=== PATIENT | female | born 1945 | race Caucasian/White ===

== ENCOUNTER 2021-01-04 22:18 | Observation (INO) | payer MEDICARE ==
[~2021-01-04] VITALS: Ht 167.6 cm; Wt 57.8 kg
[~2021-01-04 22:18] MED LIST: AMLO-186 PO; ASPI-630 PO; ATOR20TA58 PO; CARV3.1210 PO; CLOP75TA PO; DIGO250T14 PO; DIGO250T3 PO; DIPH25CA58 PO; INSU100V37 SQ; LOSA100T14 PO; LOSA25TA54 PO; METF10007 PO; OXYC1TAB22 PO; SIMV40TA18 PO
--- NOTE | 2021-01-04 22:36 | ED.ADGEN ---
Past Medical History Past Medical History: Diabetes-Type II, High Cholesterol, Hypertension, [place] Past Surgical History: Angioplasty, Hysterectomy, Other Additional Past Surgical Histo: cardiac stents x 3 Smoking Status: Former Smoker Alcohol Use: None General Adult EDM: Chief Complaint: CHEST PAIN HPI: HPI: Patient is a 75 year old female coming in for sternal chest pains are about 1 hour prior to arrival. Patient states that he feels like "an elephant stepping on me". Also states she has had some nausea but no vomiting. Patient says she feels like she is "forgetting to breathe" denies any shortness of breath or cough. Patient has a history significant for NSTEMI 11 months ago, at that time had a heart cath without any occlusions that showed Takotsubo cardiomyopathy, patient has a history of 3 prior stents. States she has been compliant with her aspirin and Plavix. Has had both of her Pfizer vaccines. Denies any history of tobacco, alcohol, or drug use. Patient states that she has been compliant on her medications. Review of Systems: Review of Systems: All other systems within normal limits except for as noted in the HPI Current Medications: Current Medications Medications (Trade) Dose Ordered Sig/Cale Start Time Stop Time Status Last Admin Dose Admin Aspirin (Aspirin Chewable) 324 mg 1X ONCE 01/04/21 23:00 01/04/21 23:01 DC Morphine Sulfate (Morphine Sulfate) 2 mg 1X ONCE 01/05/21 00:00 01/05/21 00:01 DC 01/04/21 23:53 2 MG Nitroglycerin (Nitrostat) 0.4 mg PRN Q5MIN PRN 01/04/21 22:30 01/05/21 00:18 DC 01/04/21 23:26 0.4 MG Ondansetron HCl (Zofran) 4 mg 1X ONCE 01/04/21 23:00 01/04/21 23:01 DC 01/04/21 22:46 4 MG Allergies: Allergies: Allergies Coded Allergies Type Severity Reaction Last Updated Verified Iodinated Contrast Media Allergy Severe 02/18/20 Yes Tetracyclines Allergy Severe nausea and vomiting 02/17/20 Yes Physical Exam: PE: Constitutional: Well developed, well nourished, no acute distress, non-toxic appearance. [] HENT: Normocephalic, atraumatic, bilateral external ears normal, nose normal. [] Eyes: PERRLA, conjunctiva normal, no discharge. [] Neck: No rigidity, supple, no stridor. [] Cardiovascular: Regular rate and rhythm, brisk cap refill [] Lungs & Thorax: Non labored symmetric respirations, no tachypnea or respiratory distress [] Abdomen: Soft, nondistended. Skin: Warm, dry, no erythema, no rash. [] Back: Unremarkable Extremities: No deformities, range of motion grossly intact, no lower extremity edema [] Neurologic: Alert and oriented X 3, no focal deficits noted. [] Psychologic: Affect normal, judgement normal, mood normal. [] Current Patient Data: Labs: Laboratory Tests Test 01/04/21 22:35 White Blood Count 11.9 x10^3/uL (4.0-11.0) H Red Blood Count 4.08 x10^6/uL (3.50-5.40) Hemoglobin 12.4 g/dL (12.0-15.5) Hematocrit 36.9 % (36.0-47.0) Mean Corpuscular Volume 90 fL (79-100) Mean Corpuscular Hemoglobin 30 pg (25-35) Mean Corpuscular Hemoglobin Concent 34 g/dL (31-37) Red Cell Distribution Width 12.6 % (11.5-14.5) Platelet Count 321 x10^3/uL (140-400) Neutrophils (%) (Auto) 39 % (31-73) Lymphocytes (%) (Auto) 44 % (24-48) Monocytes (%) (Auto) 10 % (0-9) H Eosinophils (%) (Auto) 6 % (0-3) H Basophils (%) (Auto) 1 % (0-3) Neutrophils # (Auto) 4.6 x10^3/uL (1.8-7.7) Lymphocytes # (Auto) 5.2 x10^3/uL (1.0-4.8) H Monocytes # (Auto) 1.2 x10^3/uL (0.0-1.1) H Eosinophils # (Auto) 0.7 x10^3/uL (0.0-0.7) Basophils # (Auto) 0.1 x10^3/uL (0.0-0.2) Prothrombin Time 13.5 SEC (11.7-14.0) Prothrombin Time INR 1.0 (0.8-1.1) Sodium Level 141 mmol/L (136-145) Potassium Level 4.5 mmol/L (3.5-5.1) Chloride Level 106 mmol/L (98-107) Carbon Dioxide Level 28 mmol/L (21-32) Anion Gap 7 (6-14) Blood Urea Nitrogen 26 mg/dL (7-20) H Creatinine 1.1 mg/dL (0.6-1.0) H Estimated GFR (Cockcroft-Gault) 48.3 BUN/Creatinine Ratio 24 (6-20) H Glucose Level 92 mg/dL (70-99) Calcium Level 9.8 mg/dL (8.5-10.1) Magnesium Level 1.9 mg/dL (1.8-2.4) Total Bilirubin 1.5 mg/dL (0.2-1.0) H Aspartate Amino Transferase (AST) 16 U/L (15-37) Alanine Aminotransferase (ALT) 17 U/L (14-59) Alkaline Phosphatase 77 U/L (46-116) Troponin I Quantitative 0.021 ng/mL (0.000-0.055) OY-Mls-P-Type Natriuretic Peptide 121 pg/mL (0-449) Total Protein 7.7 g/dL (6.4-8.2) Albumin 4.3 g/dL (3.4-5.0) Albumin/Globulin Ratio 1.3 (1.0-1.7) Laboratory Tests 01/04/21 22:35 Laboratory Tests 01/04/21 22:35 Vital Signs: Vital Signs Date Time Temp Pulse Resp B/P (MAP) Pulse Ox O2 Delivery O2 Flow Rate FiO2 01/04/21 23:53 15 97 Room Air 01/04/21 23:26 69 167/84 01/04/21 22:25 97.5 97.5 EKG: EKG: Sinus rhythm, heart rate 60 bpm, left axis deviation, no STEMI, nonspecific ST depressions. When compared to EKG dated 02-18-20 there are T wave inversions in V2 [] Heart Score: C/O Chest Pain: Yes HEART Score for Chest Pain: HEART Score for Chest Pain Response (Comments) Value History Highly Suspicious 2 ECG Nonspecific Repolarizatio 1 Age > 65 2 Risk Factors >3 Risk Factors or Hx CAD 2 Troponin < Normal Limit 0 Total 7 Risk Factors: Risk Factors: DM, Current or recent (<one month) smoker, HTN, HLP, family h istory of CAD, obesity. Risk Scores: Score 0 - 3: 2.5% MACE over next 6 weeks - Discharge Home Score 4 - 6: 20.3% MACE over next 6 weeks - Admit for Clinical Observation Score 7 - 10: 72.7% MACE over next 6 weeks - Early Invasive Strategies Radiology/Procedures: Radiology/Procedures: [facility] [address] [place] [address] IMAGING REPORT Signed PATIENT: VIJAY ARANA ACCOUNT: [id number] : 1945 LOCATION: ER AGE: 75 SEX: F EXAM STATUS: REG ER ORD. PHYSICIAN: JAYDE HINES MD REASON: chest pain PROCEDURE: CHEST PA & LATERAL Exam: Chest 2 views INDICATION: Chest pain TECHNIQUE: Frontal and lateral views the chest Comparisons: None FINDINGS: The cardiomediastinal silhouette and pulmonary vessels are within normal limits. The lung and pleural spaces are clear. IMPRESSION: No acute cardiopulmonary process. Electronically signed by: Rishi Feng MD (01/04/2021 11:04 PM) [facility] DICTATED and SIGNED BY: RISHI FENG MD DATE: 01/04/21 [id number] [] Course & Med Decision Making: Course & Med Decision Making Pertinent Labs and Imaging studies reviewed. (See chart for details) [] Patient admitted for chest pain observation due to significant history and combination with symptoms. Pains are relieved with morphine and nitroglycerin. Patient already taken aspirin prior to arrival. 0245: Repeat troponin increased from 0.02 to 0.7, patient started heparin. Patient status changed from observation on telemetry to CVC inpatient. Dragon Disclaimer: Dragon Disclaimer: This electronic medical record was generated, in whole or in part, using a voice recognition dictation system. Departure Departure Impression: Primary Impression: NSTEMI (non-ST elevated myocardial infarction) Disposition: ADMITTED INPATIENT Admitting Physician: LOGAN Condition: GUARDED Referrals: EDUARDO OROURKE MD (PCP) JAYDE HINES MD Jan 04, 2021 22:36
[2021-01-04] MEDS: NITROGLYCERIN SUBLINGUAL 0.4 MG BOTTLE OF 25. SL PRN ×3 (22:39→23:26)
[2021-01-04 22:44] LABS: BASO # 0.1 x10^3/uL (0.0-0.2); BASO % 1 % (0-3); EOS # 0.7 x10^3/uL (0.0-0.7); EOS % 6 % (0-3); HEMATOCRIT 36.9 % (36.0-47.0); HEMOGLOBIN 12.4 g/dL (12.0-15.5); LYMPH # 5.2 x10^3/uL (1.0-4.8); LYMPH % 44 % (24-48); MEAN CORPUSCULAR HEMOGLOBIN 30 pg (25-35); MEAN CORPUSCULAR HGB CONC 34 g/dL (31-37); MEAN CORPUSCULAR VOLUME 90 fL (79-100); MONO # 1.2 x10^3/uL (0.0-1.1); MONO % 10 % (0-9); NEUT # 4.6 x10^3/uL (1.8-7.7); NEUT % 39 % (31-73); PLATELET COUNT 321 x10^3/uL (140-400); RED BLOOD COUNT 4.08 x10^6/uL (3.50-5.40); RED CELL DISTRIBUTION WIDTH 12.6 % (11.5-14.5); WHITE BLOOD COUNT 11.9 x10^3/uL (4.0-11.0)
[2021-01-04 22:55] LABS: CALCIUM 9.8 mg/dL (8.5-10.1); CREATININE 1.1 mg/dL (0.6-1.0); GFR 48.3; POTASSIUM 4.5 mmol/L (3.5-5.1)
[2021-01-04 22:59] LABS: PROTHROMBIN TIME PATIENT 13.5 SEC (11.7-14.0)
[2021-01-04] MEDS ORDERED: MORPHINE SULFATE 2 MG/ML INJ. IV ONE (23:00)
[2021-01-04] MEDS ORDERED: ASPIRIN CHEWABLE 81 MG TABLET. PO ONE (23:00)
[2021-01-04] MEDS ORDERED: ONDANSETRON PF 4 MG/2 ML VIAL. IVP ONE (23:00)
[2021-01-04 23:01] LABS: ALBUMIN 4.3 g/dL (3.4-5.0); ALBUMIN/GLOBULIN RATIO 1.3 (1.0-1.7); MAGNESIUM 1.9 mg/dL (1.8-2.4); TOTAL BILIRUBIN 1.5 mg/dL (0.2-1.0); TOTAL PROTEIN 7.7 g/dL (6.4-8.2)
--- NOTE | 2021-01-04 23:07 | RAD ---
Exam: Chest 2 views INDICATION: Chest pain TECHNIQUE: Frontal and lateral views the chest Comparisons: None FINDINGS: The cardiomediastinal silhouette and pulmonary vessels are within normal limits. The lung and pleural spaces are clear. IMPRESSION: No acute cardiopulmonary process. Electronically signed by: Rishi Jasmine MD (01/04/2021 11:04 PM) [facility]ATE[facility]
[2021-01-05] VITALS (24 sets, daily range): BP systolic 101–177; BP diastolic 65–104
[2021-01-05] MEDS ORDERED: MORPHINE SULFATE 4 MG/ML INJ. IV ONE
[2021-01-05] MEDS ORDERED: NITROGLYCERIN SUBLINGUAL 0.4 MG BOTTLE OF 25. SL PRN ×2 (00:15→12:15)
[2021-01-05] MEDS ORDERED: ONDANSETRON PF 4 MG/2 ML VIAL. IVP PRN (00:15)
[2021-01-05] MEDS ORDERED: ACETAMINOPHEN 325 MG TABLET. PO PRN (00:15)
[2021-01-05] MEDS: MORPHINE SULFATE 4 MG/ML INJ. IVP PRN ×2 (01:00→07:59)
--- NOTE | 2021-01-05 01:14 | EKG ---
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
--- NOTE | 2021-01-05 01:15 | EKG ---
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
--- NOTE | 2021-01-05 01:16 | EKG ---
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
[2021-01-05 02:17] LABS: BILIRUBIN,URINE NEGATIVE (NEG); CLARITY,URINE CLEAR; COLOR,URINE YELLOW; NITRITE,URINE NEGATIVE (NEG); PROTEIN,URINE NEGATIVE (NEG-TRACE); UROBILINOGEN,URINE 0.2 mg/dL (0.2 mg/dL)
[2021-01-05 02:22] LABS: BACTERIA,URINE FEW /HPF (0-FEW); HYALINE CASTS, URINE FEW /HPF; RBC,URINE OCC /HPF (0-2)
[2021-01-05] MEDS ORDERED: HEPARIN 25,000UTS/250ML PREMIX 250 ML IV PRN (03:00)
[2021-01-05] MEDS ORDERED: HEPARIN for IV BOLUS 10,000 UNIT/10 ML VIAL. IV PRN (03:00)
[2021-01-05] MEDS ORDERED: ANTI-COAG MONITOR BY PHARMACY. MC PRN (03:00)
[2021-01-05] MEDS ORDERED: HYDROmorphone 2 MG/ML VIAL IVP ONE (03:30)
[2021-01-05] MEDS ORDERED: HEPARIN for IV BOLUS 10,000 UNIT/10 ML VIAL. IV ONE (03:30)
--- NOTE | 2021-01-05 04:22 | EKG ---
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
--- NOTE | 2021-01-05 05:36 | NUR ---
The patient, VIJAY ARANA, 75 y/o, F admitted by HAYDE SPRAGUE MD, was given written information regarding hospital policies, unit procedures and contact persons. Pt assessment and history completed and documented. Valuables were checked and documented. Callight in reach will cont to monitor pt status and safety. pmrn
--- NOTE | 2021-01-05 07:01 | NUR ---
CONSULT CALLED TO DR WARD, MESSAGE LEFT WITH ANSWERING SERVICE. PMRN
[2021-01-05] MEDS ORDERED: fentaNYL PF VIAL 100 MCG/2 ML VIAL IVP PRN (08:45)
--- NOTE | 2021-01-05 09:01 | PDOC1 ---
History and Physical Date of Admission Date of Admission DATE: 01/05/21 TIME: 09:01 Identification/Chief Complaint Chief Complaint CHEST PAIN History of Present Illness History of Present Illness Ms. Arana is a 74 old female who presented to ER with chest pain. RECENT left heart cath with no significant coronary stenosis with patent previously placed stent in the left circumflex. 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 Echocardiogram shows mildly decreased LV systolic function at 40-45%. BUT CATH suggested Takotsubo's cardiomyopathy with ejection fraction estimated at 25 to 30% NSTEMI 11 months ago, at that time had a heart cath without any occlusions that showed Takotsubo cardiomyopathy, patient has a history of 3 prior stents. States she has been compliant with her aspirin and Plavix. Has had both of her Pfizer vaccines. Denies any history of tobacco, alcohol, or drug use PLAN Entresto, Spironolactonine, Metoprolol LX and Jardiance. Monitor overnight and DC tomorrow. ADMITCardiac rehab referral Past Medical History Cardiovascular: CAD, HTN, Hyperlipidemia Heme/Onc: Anemia NOS Musculoskeletal: Osteoarthritis Renal/: UTI, Other Endocrine: Diabetes Past Surgical History Past Surgical History: Tonsillectomy, Hysterectomy, Other Family History Family History: Coronary Artery Disease, Hypertension Social History Smoke: No ALCOHOL: rare Drugs: None Current Medications Current Medications Current Medications Aspirin (Aspirin Chewable) 324 mg 1X ONCE PO ; Start 01/04/21 at 23:00; Stop 01/04/21 at 23:01; Status DC Nitroglycerin (Nitrostat) 0.4 mg PRN Q5MIN PRN SL CP RATING > 1/10 Last administered on 01/04/21at 23:26; Start 01/04/21 at 22:30; Stop 01/05/21 at 00:18; Status DC Morphine Sulfate (Morphine Sulfate) 2 mg 1X ONCE IV Last administered on 01/04/21at 22:45; Start 01/04/21 at 23:00; Stop 01/04/21 at 23:01; Status DC Ondansetron HCl (Zofran) 4 mg 1X ONCE IVP Last administered on 01/04/21at 22:46; Start 01/04/21 at 23:00; Stop 01/04/21 at 23:01; Status DC Morphine Sulfate (Morphine Sulfate) 2 mg 1X ONCE IV Last administered on 01/04/21at 23:53; Start 01/05/21 at 00:00; Stop 01/05/21 at 00:01; Status DC Ondansetron HCl (Zofran) 4 mg PRN Q8HRS PRN IVP NAUSEA/VOMITING 1ST CHOICE Last administered on 01/05/21at 08:05; Start 01/05/21 at 00:15; Stop 01/06/21 at 00:14 Morphine Sulfate (Morphine Sulfate) 4 mg PRN Q2HR PRN IVP SEVERE PAIN 7-10 Last administered on 01/05/21at 07:59; Start 01/05/21 at 00:15; Stop 01/06/21 at 00:14 Acetaminophen (Tylenol) 650 mg PRN Q4HRS PRN PO FEVER > 100.3'F Last administered on 01/05/21at 06:33; Start 01/05/21 at 00:15; Stop 01/06/21 at 00:14 Nitroglycerin (Nitrostat) 0.4 mg PRN Q5MIN PRN SL CHEST PAIN; Start 01/05/21 at 00:15; Stop 01/06/21 at 00:14 Hydromorphone HCl (Dilaudid) 1 mg 1X ONCE IVP Last administered on 01/05/21at 04:03; Start 01/05/21 at 03:30; Stop 01/05/21 at 03:31; Status DC Heparin Sodium (Porcine) (Heparin Sodium) 3,650 unit 1X ONCE IV Last administered on 01/05/21at 03:40; Start 01/05/21 at 03:30; Stop 01/05/21 at 03:31; Status DC Heparin Sodium/ Dextrose 250 ml @ 0 mls/hr CONT PRN IV PER PROTOCOL Last administered on 01/05/21at 03:44; Start 01/05/21 at 03:00 Heparin Sodium (Porcine) (Heparin Sodium) 1,500 unit PRN Q6HRS PRN IV FOR UFH LEVEL LESS THAN 0.2; Start 01/05/21 at 03:00 Info (Anti-Coagulation Monitoring By Pharmacy) 1 each PRN DAILY PRN MC PER PROTOCOL Last administered on 01/05/21at 04:59; Start 01/05/21 at 03:00 Fentanyl Citrate (Fentanyl 2ml Vial) 75 mcg PRN Q3HRS PRN IVP SEVERE PAIN 7-10; Start 01/05/21 at 08:45 Active Scripts Active Amlodipine Besylate 5 Mg Tablet 5 Mg PO DAILY Atorvastatin Calcium 20 Mg Tablet 20 Mg PO QHS Carvedilol (Carvedilol) 3.125 Mg Tablet 3.125 Mg PO BIDWMEALS Reported Losartan Potassium 100 Mg Tablet 100 Mg PO DAILY Tresiba (Insulin Degludec) 100 Unit/1 Ml Vial 30 Unit SQ HS Percocet 10-325 Mg Tablet (Oxycodone/Acetaminophen) 1 Each Tablet 1 Tab PO QIDPRN PRN MDD 4 Tablet(s) 30 Days Benadryl (Diphenhydramine Hcl) 25 Mg Capsule 25 Mg PO Q6HRS Metformin Hcl 1,000 Mg Tablet 1,000 Mg PO BIDWMEALS Aspirin 81 Mg Tab.chew 1 Tab PO DAILY Clopidogrel (Clopidogrel Bisulfate) 75 Mg Tablet 75 Mg PO DAILY Allergies Allergies: Coded Allergies: Iodinated Contrast Media (Verified Allergy, Severe, 02/18/20) Tetracyclines (Verified Allergy, Severe, nausea and vomiting, 02/17/20) ROS General: YES: Fatigue; No: Chills, Night Sweats, Malaise, Appetite, Other PSYCHOLOGICAL ROS: No: Anxiety, Behavioral Disorder, Concentration difficultie, Decreased libido, Depression, Disorientation, Hallucinations, Hostility, Irritablity, Memory difficulties, Mood Swings, Obsessive thoughts, Physical abuse, Sexual abuse, Sleep disturbances, Suicidal ideation, Other Eyes: Yes Decreased vision; No Blurry vision, No Double vision, No Dry eyes, No Excessive tearing, No Eye Pain, No Itchy Eyes, No Loss of vision, No Photophobia, No Scotomata, No Uses contacts, No Uses glasses, No Other HEENT: No: Heacaches, Visual Changes, Hearing change, Nasal congestion, Nasal discharge, Oral lesions, Sinus pain, Sore Throat, Epistaxis, Sneezing, Snoring, Tinnitus, Vertigo, Vocal changes, Other ALLERGY AND IMMUNOLOGY: YES: Hives; No: Insect Bite Sensitivity, Itchy/Watery Eyes, Nasal Congestion, Post Nasal Drip, Seasonal Allergies, Other Hematological and Lymphatic: No: Bleeding Problems, Blood Clots, Blood Transfusions, Brusing, Night Sweats, Pallor, Swollen Lymph Nodes, Other ENDOCRINE: No: Breast Changes, Galactorrhea, Hair Pattern Changes, Hot Flashes, Malaise/lethargy, Mood Swings, Palpitations, Polydipsia/polyuria, Skin Changes, Temperature Intolerance, Unexpected Weight Changes, Other Breast: No New/Changing Breast Lumps, No Nipple changes, No Nipple discharge, No Other Respiratory: No: Cough, Hemoptysis, Orthopnea, Pleuritic Pain, Shortness of breath, SOB with excertion, Sputum Changes, Stridor, Tachypnea, Wheezing, Other Cardiovascular: yes Chest Pain, yes Orthopnea; No Palpitations, No Paroxysmal Noc. Dyspnea, No Edema, No Lt Headedness, No Other Gastrointestinal: No Nausea, No Vomiting, No Abdominal Pain, No Diarrhea, No Constipation, No Melena, No Hematochezia, No Other Genitourinary: No Dysuria, No Frequency, No Incontinence, No Hematuria, No Retention, No Discharge, No Urgency, No Pain, No Flank Pain, No Other, No , No , No , No , No , No , No Musculoskeletal: Yes Joint Stiffness; No Gait Disturbance, No Joint Pain, No Joint Swelling, No Muscle Pain, No Muscular Weakness, No Pain In:, No Swelling In:, No Other Neurological: No Behavorial Changes, No Bowel/Bladder ControlChng, No Confusion, No Dizziness, No Gait Disturbance, No Headaches, No Impaired Coord/balance, No Memory Loss, No Numbness/Tingling, No Seizures, No Speech Problems, No Tremors, No Visual Changes, No Weakness, No Other Skin: Yes Dry Skin; No Eczema, No Hair Changes, No Lumps, No Mole Changes, No Mottling, No Nail Changes, No Pruritus, No Rash, No Skin Lesion Changes, No Other, No Acne Physical Exam General: Alert, Oriented X3, Cooperative, No acute distress HEENT: Atraumatic, PERRLA Lungs: Clear to auscultation, Normal air movement Heart: no thrills, no gallops, no jug vein distention Breasts: Not examined Abdomen: Normal bowel sounds, Soft Rectal Exam: not examined PELVIC: Examination not indicated Extremities: No cyanosis Neuro: Normal speech, Cranial nerves 3-12 NL Psych/Mental Status: Mental status NL, Mood NL Vitals Vitals Vital Signs Date Time Temp Pulse Resp B/P (MAP) Pulse Ox O2 Delivery O2 Flow Rate FiO2 8/17/21 07:59 Room Air 01/05/21 04:03 17 93 01/05/21 03:52 76 147/96 (113) 01/04/21 22:25 97.5 97.5 Labs Labs Laboratory Tests Test 01/04/21 22:35 01/05/21 02:05 01/05/21 02:14 01/05/21 05:30 White Blood Count 11.9 x10^3/uL (4.0-11.0) Red Blood Count 4.08 x10^6/uL (3.50-5.40) Hemoglobin 12.4 g/dL (12.0-15.5) Hematocrit 36.9 % (36.0-47.0) Mean Corpuscular Volume 90 fL (79-100) Mean Corpuscular Hemoglobin 30 pg (25-35) Mean Corpuscular Hemoglobin Concent 34 g/dL (31-37) Red Cell Distribution Width 12.6 % (11.5-14.5) Platelet Count 321 x10^3/uL (140-400) Neutrophils (%) (Auto) 39 % (31-73) Lymphocytes (%) (Auto) 44 % (24-48) Monocytes (%) (Auto) 10 % (0-9) Eosinophils (%) (Auto) 6 % (0-3) Basophils (%) (Auto) 1 % (0-3) Neutrophils # (Auto) 4.6 x10^3/uL (1.8-7.7) Lymphocytes # (Auto) 5.2 x10^3/uL (1.0-4.8) Monocytes # (Auto) 1.2 x10^3/uL (0.0-1.1) Eosinophils # (Auto) 0.7 x10^3/uL (0.0-0.7) Basophils # (Auto) 0.1 x10^3/uL (0.0-0.2) Prothrombin Time 13.5 SEC (11.7-14.0) Prothromb Time International Ratio 1.0 (0.8-1.1) Sodium Level 141 mmol/L (136-145) Potassium Level 4.5 mmol/L (3.5-5.1) Chloride Level 106 mmol/L (98-107) Carbon Dioxide Level 28 mmol/L (21-32) Anion Gap 7 (6-14) Blood Urea Nitrogen 26 mg/dL (7-20) Creatinine 1.1 mg/dL (0.6-1.0) Estimated GFR (Cockcroft-Gault) 48.3 BUN/Creatinine Ratio 24 (6-20) Glucose Level 92 mg/dL (70-99) Calcium Level 9.8 mg/dL (8.5-10.1) Magnesium Level 1.9 mg/dL (1.8-2.4) Total Bilirubin 1.5 mg/dL (0.2-1.0) Aspartate Amino Transf (AST/SGOT) 16 U/L (15-37) Alanine Aminotransferase (ALT/SGPT) 17 U/L (14-59) Alkaline Phosphatase 77 U/L (46-116) Troponin I Quantitative 0.021 ng/mL (0.000-0.055) 0.701 ng/mL (0.000-0.055) 1.318 ng/mL (0.000-0.055) DG-Unv-X-Type Natriuretic Peptide 121 pg/mL (0-449) Total Protein 7.7 g/dL (6.4-8.2) Albumin 4.3 g/dL (3.4-5.0) Albumin/Globulin Ratio 1.3 (1.0-1.7) Urine Collection Type Unknown Urine Color Yellow Urine Clarity Clear Urine pH 5.0 (<5.0-8.0) Urine Specific [place] 1.025 (1.000-1.030) Urine Protein Negative mg/dL (NEG-TRACE) Urine Glucose (UA) Negative mg/dL (NEG) Urine Ketones (Stick) Trace mg/dL (NEG) Urine Blood Negative (NEG) Urine Nitrite Negative (NEG) Urine Bilirubin Negative (NEG) Urine Urobilinogen Dipstick 0.2 mg/dL (0.2 mg/dL) Urine Leukocyte Esterase Negative (NEG) Urine RBC Occ /HPF (0-2) Urine WBC 1-4 /HPF (0-4) Urine Squamous Epithelial Cells Mod /LPF Urine Bacteria Few /HPF (0-FEW) Urine Hyaline Casts Few /HPF Urine Mucus Mod /LPF Test 01/05/21 07:52 Glucose (Fingerstick) 135 mg/dL (70-99) Laboratory Tests Test 01/04/21 22:35 01/05/21 02:05 01/05/21 02:14 01/05/21 05:30 White Blood Count 11.9 x10^3/uL (4.0-11.0) Red Blood Count 4.08 x10^6/uL (3.50-5.40) Hemoglobin 12.4 g/dL (12.0-15.5) Hematocrit 36.9 % (36.0-47.0) Mean Corpuscular Volume 90 fL (79-100) Mean Corpuscular Hemoglobin 30 pg (25-35) Mean Corpuscular Hemoglobin Concent 34 g/dL (31-37) Red Cell Distribution Width 12.6 % (11.5-14.5) Platelet Count 321 x10^3/uL (140-400) Neutrophils (%) (Auto) 39 % (31-73) Lymphocytes (%) (Auto) 44 % (24-48) Monocytes (%) (Auto) 10 % (0-9) Eosinophils (%) (Auto) 6 % (0-3) Basophils (%) (Auto) 1 % (0-3) Neutrophils # (Auto) 4.6 x10^3/uL (1.8-7.7) Lymphocytes # (Auto) 5.2 x10^3/uL (1.0-4.8) Monocytes # (Auto) 1.2 x10^3/uL (0.0-1.1) Eosinophils # (Auto) 0.7 x10^3/uL (0.0-0.7) Basophils # (Auto) 0.1 x10^3/uL (0.0-0.2) Prothrombin Time 13.5 SEC (11.7-14.0) Prothromb Time International Ratio 1.0 (0.8-1.1) Sodium Level 141 mmol/L (136-145) Potassium Level 4.5 mmol/L (3.5-5.1) Chloride Level 106 mmol/L (98-107) Carbon Dioxide Level 28 mmol/L (21-32) Anion Gap 7 (6-14) Blood Urea Nitrogen 26 mg/dL (7-20) Creatinine 1.1 mg/dL (0.6-1.0) Estimated GFR (Cockcroft-Gault) 48.3 BUN/Creatinine Ratio 24 (6-20) Glucose Level 92 mg/dL (70-99) Calcium Level 9.8 mg/dL (8.5-10.1) Magnesium Level 1.9 mg/dL (1.8-2.4) Total Bilirubin 1.5 mg/dL (0.2-1.0) Aspartate Amino Transf (AST/SGOT) 16 U/L (15-37) Alanine Aminotransferase (ALT/SGPT) 17 U/L (14-59) Alkaline Phosphatase 77 U/L (46-116) Troponin I Quantitative 0.021 ng/mL (0.000-0.055) 0.701 ng/mL (0.000-0.055) 1.318 ng/mL (0.000-0.055) LM-[id number]-[id number]-Type Natriuretic Peptide 121 pg/mL (0-449) Total Protein 7.7 g/dL (6.4-8.2) Albumin 4.3 g/dL (3.4-5.0) Albumin/Globulin Ratio 1.3 (1.0-1.7) Urine Collection Type Unknown Urine Color Yellow Urine Clarity Clear Urine pH 5.0 (<5.0-8.0) Urine Specific [place] 1.025 (1.000-1.030) Urine Protein Negative mg/dL (NEG-TRACE) Urine Glucose (UA) Negative mg/dL (NEG) Urine Ketones (Stick) Trace mg/dL (NEG) Urine Blood Negative (NEG) Urine Nitrite Negative (NEG) Urine Bilirubin Negative (NEG) Urine Urobilinogen Dipstick 0.2 mg/dL (0.2 mg/dL) Urine Leukocyte Esterase Negative (NEG) Urine RBC Occ /HPF (0-2) Urine WBC 1-4 /HPF (0-4) Urine Squamous Epithelial Cells Mod /LPF Urine Bacteria Few /HPF (0-FEW) Urine Hyaline Casts Few /HPF Urine Mucus Mod /LPF Test 01/05/21 07:52 Glucose (Fingerstick) 135 mg/dL (70-99) Images Images think and talk about your own wishes for healthcare in case youre ever not able to tell your loved ones or healthcare team what your wishes are. If you became really sick tomorrow, would your loved ones or healthcare team know what your wishes were? Here are some examples of different sets of goals and health care directives for your conversations: My wish is to use all medical therapies including resuscitation (such as CPR) and artificial life-sustaining treatments (such as machines and medicine) in an intensive care unit, to keep me alive if at all possible. My wish is to live as long as possible, but I dont want attempts to bring me back to life if my heart and breathing stop. I would like full medical care but without using resuscitation or artificial life-sustaining intensive treatments, if these are unlikely to make me live longer or restore me to a certain quality of life. I will accept treatments that try to fix medical problems, but if Im not getting better or going to have a certain quality of life, I would want to switch to focusing only on my comfort and letting my happen naturally. My wish is for healthcare to focus on my comfort and lessen suffering. I would like medical care that focuses only on my quality of life and that allows me to naturally. Consider: What does a good quality of life mean for me? For many people, it is the ability to live independently and tell their own story. I may define it differently. Under what circumstances would I not want to be kept alive by medical treatments, resuscitation, or intensive care? What kind of changes to my health or life might make me change my mind? If I clearly am facing the last chapter of my life, how do I want the story to end? Who do I want to speak for me if I cant speak for myself? Do they understand my preferences? Are they willing to assume the role of my Durable Power of Burlap Roll Coverer? Can I change my Goals of Care Designation? Yes, your Goals of Care Designation can be changed at any time. It should be reviewed if: your health condition changes your circumstances change (such as new understanding) you are transferred or admitted to another healthcare setting dpoa review, to pt portal 18 min and question review APPROVED REPORT Technologist: RT Marian(R) Nurse: Columba Jones R.N. Procedure(s) performed: Left heart catheterization, selective coronary angiography and left ventriculography via right transradial approach Sedation Time: 42 Minutes Dose: 31.56 Gycm2 Contrast: 90 mL Visipaque Fluoro Time: 3.8 minutes INDICATION The indication(s) include : non-STEMI . CSHA Clinical Frailty Scale CSHA Clinical Frailty Scale: Mildly Frail Heart Failure Heart Failure: No PROCEDURE NARRATIVE After explaining the risks, benefits and alternative options, informed consent was obtained from patient. Patient was brought to the cardiac Veneer Lathe Operator and right wrist was prepped and draped in the usual fashion after confirming a p ositive modified Jacky's test. Arterial access was obtained in the right radial artery and a 6 [place] sheath was inserted. 6 [place] JR4 and 6 [place] JL 3.5 catheters were used to perform selective angiography of the right and left coronary arteries. 6 [place] pigtail catheter was used to perform left ventriculography. Patient tolerated the procedure well. Hemostasis was achieve d using TR band. There were no immediate complications. The following findings were noted. FINDINGS 1. Hemodynamics: Left ventricular end-diastolic pressure of 20 mmHg. No pullback gradient across the aortic valve. 2. Left ventriculography: Hypokinetic mid to distal myocardial segments, patent consistent with Takotsubu's cardiomyopathy. The left ventricular ejection fraction was estimated at 25 to 30%. No significant mitral regurgitation seen. 3. Coronary angiography: a. The left main coronary artery arose from the left sinus of Valsalva, gave rise to the left anterior descending and left circumflex arteries and did not sh ow any significant stenosis. b. The left anterior descending artery showed calcified 30% stenosis in the proximal to midsegment. c. The left circumflex artery showed a patent stent in the midsegment extending into the obtuse marginal branch. d. The right coronary artery was a large and dominant vessel arising from the right sinus of Valsalva that did not show any significant stenosis. Conclusion 1. No significant coronary stenosis with patent previously placed stent in the left circumflex artery extending to the obtuse marginal branch. 2. Takotsubo's cardiomyopathy with ejection fraction estimated at 25 to 30% Recommendations Optimization of medical therapy including beta-blockers and repeat 2D echo in 3 months. Signed by : Blayne Burleson, Electronically Approved : 02/19/2020 10:29:00Signed PATIENT: VIJAY ARANA ACCOUNT: [id number] : 1945 LOCATION: ER AGE: 75 SEX: F EXAM STATUS: REG ER ORD. PHYSICIAN: JAYDE HINES MD REASON: chest pain PROCEDURE: CHEST PA & LATERAL Exam: Chest 2 views INDICATION: Chest pain TECHNIQUE: Frontal and lateral views the chest Comparisons: None FINDINGS: The cardiomediastinal silhouette and pulmonary vessels are within normal limits. The lung and pleural spaces are clear. IMPRESSION: No acute cardiopulmonary process. Electronically signed by: Rishi Feng MD (01/04/2021 11:04 PM) [facility] DICTATED and SIGNED BY: RISHI FENG MD DATE: 01/04/21 [id number] VTE Prophylaxis Ordered VTE Prophylaxis Devices: Yes VTE Pharmacological Prophylaxi: Yes Assessment/Plan Assessment/Plan impression Angina Elevated troponin i c/w demand ischemia CAD with hx stent// placed stent in the left circumflex cath shows patent anatomy ON pLAVIX AND ASA Takotsubo's cardiomyopathy with ejection fraction estimated at 25 to 30% Hypertension Hyperlipidemia PLAN ADMIT Consult cardiology home meds DVT PROPHYLAXIS TELE BED REPEAT CARDIAC CATH TODAY Entresto, /Spironolactonine, Metoprolol LX and Jardiance. Cardiac rehab referral Justifications for Admission Other Justification KANWAL LEMOS MD Jan 05, 2021 09:01
[2021-01-05] MEDS ORDERED: oxyCODONE/APAP 10/325 1 TAB TABLET PO PRN (09:15)
[2021-01-05] MEDS ORDERED: diphenhydrAMINE 50 MG/ML VIAL IVP ONE (09:30)
[2021-01-05] MEDS ORDERED: methylPREDNISolone SOD SUCC PF 125 MG/2 ML VIAL. IV ONE (09:30)
[2021-01-05] MEDS ORDERED: IV NORMAL SALINE 1000ML BAG 1,000 ML IV ONE (09:30)
[2021-01-05] MEDS ORDERED: FAMOTIDINE 20 MG/2 ML VIAL IVP ONE (09:30)
[2021-01-05] MEDS ORDERED: NITROGLYCERIN PREMIX 250 ML IV ONE (09:30)
--- NOTE | 2021-01-05 09:34 | PDOC2 ---
MOHIT STEPHENS SSRS REPORT DEVELOPER 01/05/21 0934: CARDIAC CONSULT DATE OF CONSULT Date of Consult DATE: 01/05/21 TIME: 09:26 REASON FOR CONSULT Reason for Consult: Chest pain REFERRING PHYSICIAN Referring Physician: Darron SOURCE Source: Chart review, Patient HISTORY OF PRESENT ILLNESS HISTORY OF PRESENT ILLNESS This is a pleasant 75 yo female admitted for complains of chest pain. Reports it started last night pressure like radiating from midchest to right and radiating to right shoulder. Reports of nausea and some SOA. Denies any orthopnea, PND. No fever or chills nor palpitations. Reports of no falls or any recent injury. she is significant for CAD with stent and tokotsubo with last [facility] 01/2020. She presents with elevated troponin and has DM which she uses insulin. Verbalized that she has been compliant with her cardiac meds but failed to follow up in our office. She still having chest pain but slightly better than before. She has not been checking her BP as her machine is broken. She had her second shot of Pfizer in August. PAST MEDICAL HISTORY Past Medical History Cardiovascular: CAD, HTN, Hyperlipidemia, CHF, taklotsubo Heme/Onc: Anemia NOS Musculoskeletal: Osteoarthritis Renal/: UTI, Other (nephrolithiasis) Endocrine: Diabetes (2) PAST SURGICAL HISTORY Past Surgical History Tonsillectomy, Hysterectomy, Other (PCI, low back surgery) FAMILY HISTORY Family History: Coronary Artery Disease SOCIAL HISTORY Smoke: No ALCOHOL: rare Drugs: None Lives: with Family CURRENT MEDICATIONS CURRENT MEDICATIONS Current Medications Medications (Trade) Dose Ordered Sig/Cale Route PRN Reason Start Time Stop Time Status Last Admin Dose Admin Nitroglycerin (Nitrostat) 0.4 mg PRN Q5MIN PRN SL CP RATING > 1/10 01/04/21 22:30 01/05/21 00:18 DC 01/04/21 23:26 Morphine Sulfate (Morphine Sulfate) 2 mg 1X ONCE IV 01/04/21 23:00 01/04/21 23:01 DC 01/04/21 22:45 Ondansetron HCl (Zofran) 4 mg 1X ONCE IVP 01/04/21 23:00 01/04/21 23:01 DC 01/04/21 22:46 Morphine Sulfate (Morphine Sulfate) 2 mg 1X ONCE IV 01/05/21 00:00 01/05/21 00:01 DC 01/04/21 23:53 Ondansetron HCl (Zofran) 4 mg PRN Q8HRS PRN IVP NAUSEA/VOMITING 1ST CHOICE 01/05/21 00:15 01/06/21 00:14 01/05/21 08:05 Morphine Sulfate (Morphine Sulfate) 4 mg PRN Q2HR PRN IVP SEVERE PAIN 7-10 01/05/21 00:15 01/06/21 00:14 01/05/21 07:59 Acetaminophen (Tylenol) 650 mg PRN Q4HRS PRN PO FEVER > 100.3'F 01/05/21 00:15 01/06/21 00:14 01/05/21 06:33 Hydromorphone HCl (Dilaudid) 1 mg 1X ONCE IVP 01/05/21 03:30 01/05/21 03:31 DC 01/05/21 04:03 Heparin Sodium (Porcine) (Heparin Sodium) 3,650 unit 1X ONCE IV 01/05/21 03:30 01/05/21 03:31 DC 01/05/21 03:40 Heparin Sodium/ Dextrose 250 ml @ 0 mls/hr CONT PRN IV PER PROTOCOL 01/05/21 03:00 01/05/21 03:44 Info (Anti-Coagulation Monitoring By Pharmacy) 1 each PRN DAILY PRN MC PER PROTOCOL 01/05/21 03:00 01/05/21 04:59 ALLERGIES ALLERGIES: Coded Allergies: Iodinated Contrast Media (Verified Allergy, Severe, 02/18/20) Tetracyclines (Verified Allergy, Severe, nausea and vomiting, 02/17/20) ROS Review of System 14 point ROS evaluated with pertinent positives noted per HPI PHYSICAL EXAM General: Alert, Oriented X3, Cooperative, No acute distress HEENT: Atraumatic, Mucous membr. moist/pink Lungs: Clear to auscultation, Normal air movement Heart: Regular rate (SR/ST), Normal S1, Normal S2, No murmurs Abdomen: Soft, No tenderness Extremities: No cyanosis, Other (1+ bilateral LE pitting edema) Skin: No breakdown, No significant lesion Neuro: Normal speech, Sensation intact Psych/Mental Status: Mental status NL, Mood NL MUSCULOSKELETAL: Osteoarthritic changes both hands VITALS/I&O VITALS/I&O: Vital Signs Date Time Temp Pulse Resp B/P (MAP) Pulse Ox O2 Delivery O2 Flow Rate FiO2 01/05/21 07:59 Room Air 01/05/21 04:03 17 93 01/05/21 03:52 76 147/96 (113) 01/04/21 22:25 97.5 97.5 I & O 01/04/21 01/04/21 01/05/21 15:00 23:00 07:00 Output Total 250 ml Balance -250 ml LABS Lab: Laboratory Tests Test 01/04/21 22:35 01/05/21 02:05 01/05/21 02:14 01/05/21 05:30 White Blood Count 11.9 x10^3/uL (4.0-11.0) H Red Blood Count 4.08 x10^6/uL (3.50-5.40) Hemoglobin 12.4 g/dL (12.0-15.5) Hematocrit 36.9 % (36.0-47.0) Mean Corpuscular Volume 90 fL (79-100) Mean Corpuscular Hemoglobin 30 pg (25-35) Mean Corpuscular Hemoglobin Concent 34 g/dL (31-37) Red Cell Distribution Width 12.6 % (11.5-14.5) Platelet Count 321 x10^3/uL (140-400) Neutrophils (%) (Auto) 39 % (31-73) Lymphocytes (%) (Auto) 44 % (24-48) Monocytes (%) (Auto) 10 % (0-9) H Eosinophils (%) (Auto) 6 % (0-3) H Basophils (%) (Auto) 1 % (0-3) Neutrophils # (Auto) 4.6 x10^3/uL (1.8-7.7) Lymphocytes # (Auto) 5.2 x10^3/uL (1.0-4.8) H Monocytes # (Auto) 1.2 x10^3/uL (0.0-1.1) H Eosinophils # (Auto) 0.7 x10^3/uL (0.0-0.7) Basophils # (Auto) 0.1 x10^3/uL (0.0-0.2) Prothrombin Time 13.5 SEC (11.7-14.0) Prothrombin Time INR 1.0 (0.8-1.1) Sodium Level 141 mmol/L (136-145) Potassium Level 4.5 mmol/L (3.5-5.1) Chloride Level 106 mmol/L (98-107) Carbon Dioxide Level 28 mmol/L (21-32) Anion Gap 7 (6-14) Blood Urea Nitrogen 26 mg/dL (7-20) H Creatinine 1.1 mg/dL (0.6-1.0) H Estimated GFR (Cockcroft-Gault) 48.3 BUN/Creatinine Ratio 24 (6-20) H Glucose Level 92 mg/dL (70-99) Calcium Level 9.8 mg/dL (8.5-10.1) Magnesium Level 1.9 mg/dL (1.8-2.4) Total Bilirubin 1.5 mg/dL (0.2-1.0) H Aspartate Amino Transferase (AST) 16 U/L (15-37) Alanine Aminotransferase (ALT) 17 U/L (14-59) Alkaline Phosphatase 77 U/L (46-116) Troponin I Quantitative 0.021 ng/mL (0.000-0.055) 0.701 ng/mL (0.000-0.055) 1.318 ng/mL (0.000-0.055) KT-Ayv-E-Type Natriuretic Peptide 121 pg/mL (0-449) Total Protein 7.7 g/dL (6.4-8.2) Albumin 4.3 g/dL (3.4-5.0) Albumin/Globulin Ratio 1.3 (1.0-1.7) Urine Collection Type Unknown Urine Color Yellow Urine Clarity Clear Urine pH 5.0 (<5.0-8.0) Urine Specific Kermit 1.025 (1.000-1.030) Urine Protein Negative mg/dL (NEG-TRACE) Urine Glucose (UA) Negative mg/dL (NEG) Urine Ketones (Stick) Trace mg/dL (NEG) Urine Blood Negative (NEG) Urine Nitrite Negative (NEG) Urine Bilirubin Negative (NEG) Urine Urobilinogen Dipstick 0.2 mg/dL (0.2 mg/dL) Urine Leukocyte Esterase Negative (NEG) Urine RBC Occ /HPF (0-2) Urine WBC 1-4 /HPF (0-4) Urine Squamous Epithelial Cells Mod /LPF Urine Bacteria Few /HPF (0-FEW) Urine Hyaline Casts Few /HPF Urine Mucus Mod /LPF Test 01/05/21 07:52 Glucose (Fingerstick) 135 mg/dL (70-99) H Laboratory Tests 01/04/21 22:35 Laboratory Tests 01/04/21 22:35 ASSESSMENT/PLAN ASSESSMENT/PLAN 1. NSTEMI: ACS features 2. HTN: mildly elevated 3. HLP 4. DM2 5. Hx of Takotsubo CM Recommendations 1. LHC, risks and benefits discussed and agreeable to proceed 2. Iodine prep for allergy 3. Start IVF and NTG drip. ASA 4. TTE, FLP 5. Secondary prevention measures ANY WARD MD 01/05/21 1210: CARDIAC CONSULT ASSESSMENT/PLAN ASSESSMENT/PLAN Pt. seen and examined. Agree with above [employer] note. Cath revealed patent LCx stent and no new changes. 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 Monitor overnight and DC tomorrow. Cardiac rehab referral Thanks. MOHIT STEPHENS SSRS REPORT DEVELOPER Jan 05, 2021 09:34 ANY WARD MD Jan 05, 2021 12:10
[2021-01-05] MEDS ORDERED: IODIXANOL 320 MG/ML 100 ML VIAL. ONE (09:56)
[2021-01-05] MEDS ORDERED: LIDOCAINE 1% PF 2 ML VIAL. ONE (09:56)
[2021-01-05] MEDS ORDERED: HEPARIN for ARTERIAL LINE 1,500 ML ONE (09:56)
[2021-01-05] MEDS ORDERED: ASPIRIN CHEWABLE 81 MG TABLET. PO SCH (10:00)
[2021-01-05] MEDS ORDERED: LOSARTAN POTASSIUM 50 MG TABLET. PO SCH (10:00)
[2021-01-05] MEDS: CLOPIDOGREL BISULFATE 75 MG TABLET PO SCH (10:26)
[2021-01-05] MEDS: CARVEDILOL 3.125 MG TABLET. PO SCH ×2 (10:27→17:18)
[2021-01-05] MEDS ORDERED: fentaNYL PF VIAL 100 MCG/2 ML VIAL ONE (10:56)
[2021-01-05] MEDS ORDERED: HEPARIN for IV BOLUS 10,000 UNIT/10 ML VIAL. ONE (10:57)
[2021-01-05] MEDS ORDERED: VERAPAMIL 5 MG/2 ML VIAL. ONE (10:57)
[2021-01-05] MEDS ORDERED: NITROGLYCERIN 200 MCG/2 ML SYRINGE FOR CATH/VASC LAB. ONE (10:57)
[2021-01-05] MEDS ORDERED: MIDAZOLAM HCL/PF 2 MG/2 ML VIAL. ONE (10:57)
[2021-01-05] MEDS ORDERED: NITROGLYCERIN 200 MCG/2 ML SYRINGE FOR CATH/VASC LAB. IART ONE (11:30)
[2021-01-05] MEDS ORDERED: VERAPAMIL 5 MG/2 ML VIAL. IART ONE (11:30)
[2021-01-05] MEDS ORDERED: HEPARIN for IV BOLUS 10,000 UNIT/10 ML VIAL. IART ONE (11:30)
[2021-01-05] MEDS ORDERED: MIDAZOLAM HCL/PF 2 MG/2 ML VIAL. IV ONE (11:30)
[2021-01-05] MEDS ORDERED: IODIXANOL 320 MG/ML 100 ML VIAL. IART ONE (11:30)
[2021-01-05] MEDS ORDERED: LIDOCAINE 1% PF 2 ML VIAL. INJ ONE (11:30)
[2021-01-05] MEDS ORDERED: fentaNYL PF VIAL 100 MCG/2 ML VIAL IV ONE (11:30)
[2021-01-05] MEDS: diphenhydrAMINE HCL 25 MG CAPSULE PO SCH ×3 (12:00→23:39)
--- NOTE | 2021-01-05 12:07 | PDOC ---
MODERATE SEDATION ASSESSMENT RISKS/ALTERNATIVES Risks/Alternatives Risks and alternatives of this type of sedation and procedure discussed with: RISK/ALTERNATIVES: Patient H & P ON CHART H & P H & P on chart and reviewed for co-morbid conditions and appropriate labs. H&P ON CHART: Yes STATUS PREG STATUS ASSESSED: N/A MEDS/ALLERGIES REVIEWED Meds/Allergies Reviewed Medications and Allergies including time and route of recently administered narcotics and sedatives. MEDS/ALLERGIES REVIEWED: Yes ASA RATING ASA RATING: II AIRWAY ASSESSMENT Airway Assessment Airway patency, oral function limitations, presence of caps, crowns, dentures, partials, and ability to extend neck assessed. AIRWAY ASSESSMENT: Yes MALLAMPATI SCORE MALLAMPATI SCORE: II PRE-SEDATION ASSESSMENT PRE-SEDATION ASSESSMENT: Yes ANY WARD MD Jan 05, 2021 12:07
[2021-01-05] MEDS ORDERED: 0.9 % SODIUM CHLORIDE 10 ML DISP.SYRIN. IV PRN (12:15)
--- NOTE | 2021-01-05 12:17 | CARD ---
MR#: [id number] Date of Study: 01/05/2021 Ordering Physician: MOHIT STEPHENS, Referring Physician: MOHIT STEPHENS, Tech: RT Gopal(R) APPROVED REPORT Technologist: Beatriz Garza RT(R) Nurse: Kayleigh Campos RN Procedure(s) performed: MODERATE SEDATION TIME: 25 MINUTES FLUORO TIME: 2.8 MIN DOSE: 25.9 GYCM2 CONTRAST: 53CC VISI [facility], coronary angiography HISTORY The patient is a 75 year-old female with a history of : coronary artery disease. INDICATION The indication(s) include : non-STEMI . CS Clinical Frailty Scale [facility] Clinical Frailty Scale: Managing Well Heart Failure Heart Failure: Yes If Yes, Newly Diagnosed: No If Yes, HF Type: Diastolic Systolic If Yes, NYHA Class: Class II CASE TECHNIQUE IV conscious sedation was used throughout procedure with appropriate monitoring and was performed in the presence of a registered nurse who was an independent trained observer other than the physician p erforming the procedure. During this case, Fluoroscopy and low osmolar contrast were used for imaging . Specimen(s) Removed: N/A Estimated Blood loss: 15 cc's. PROCEDURE NARRATIVE Informed consent: Written informed consent was obtained from the patient after adequate discussion of the risks and hortencia efits of the procedure. Procedure details: ACCESS: The right wrist was prepped and draped in usual sterile fashion. Under 1% lidocaine local anesthesia a 6 Icelandic Terumo sheath was placed in the right radial artery via the Seldinger technique. DIAGNOSTIC ANGIOGRAPHY: Right and left coronary arteries were engaged with a 6 Icelandic TIG catheter. Diagnostic angiography i n multiple views were obtained. Next, a 5 Icelandic pigtail catheter was placed in the left ventricle a nd a LVEDP was measured. A pullback was performed after left ventriculography. All catheters were e xchanged over J-tip guidewire. FINDINGS: ======= Aorta: 110/80 LVEDP: 24 mmHg Left ventriculogram: EF 35%, distal half of the LV is severely hypokinetic, consistent with stress in duced CMP. Coronary angiography: LM: Large caliber vessel with normal angiographic appearance LAD: Moderate caliber vessel with a proximal 50% stenosis. D1: Small caliber vessel with normal angiographic appearance LCX: Small caliber vessel with proximal diffuse 50% in stent restenosis and mild diffuse luminal irre gularities distally. RCA: Large caliber dominant vessel with mild luminal irregularities of up to 30% RPDA: Moderate caliber vessel with mild luminal irregularities. CLOSURE: At case completion the right radial sheath was removed and a Terumo radial band was applied with 11 m L of air. Hemostasis was achieved. COMPLICATIONS: No acute complications noted Conclusion 1. Acute on chronic systolic and diastolic HF. LVEDP 24 mm Hg. 2. Severe LV dysfunction. EF 30-35% 3. Two vessel coronary disease with patent stent in the LCx. 4. 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 Recommendations Cardiac Rehabilitation Referral Aggressive Medical Therapy Signed by : Piotr Zuleta, Electronically Approved : 01/05/2021 12:17:25
--- NOTE | 2021-01-05 13:05 | NUR ---
AFTER 2CC OF AIR REMOVED FROM RIGHT RADIAL SITE, BLEEDING NOTED AND 3CC OF AIR REINSERTED. WILL CONTINUE TO MONITOR.
[2021-01-05 13:50] LABS: CHOLESTEROL/HDL RATIO 2.6
[2021-01-05] MEDS ORDERED: metFORMIN 500 MG TABLET PO SCH (17:00)
--- NOTE | 2021-01-05 17:07 | CARD ---
MR#: [id number] Date of Study: 01/05/2021 Ordering Physician: MOHIT STEPHENS, Referring Physician: MOHIT STEPHENS, Tech: Roopa Aumiadrienne, [facility] APPROVED REPORT EXAM: Two-dimensional and M-mode echocardiogram with Doppler and color Doppler. Other Information Quality : AverageHR: 72bpm INDICATION Status/Post CA RISK FACTORS Hypertension Hyperlipidemia Diabetes 2D DIMENSIONS Left Atrium(2D)2.1 (1.6-4.0cm)IVSd1.0 (0.7-1.1cm) Aortic Root(2D)3.0 (2.0-3.7cm)LVDd4.9 (3.9-5.9cm) LVOT Diameter2.1 (1.8-2.4cm)PWd0.8 (0.7-1.1cm) LVDs3.3 (2.5-4.0cm)FS (%) 32.8 % SV69.9 ml Aortic Valve AoV Peak Sam.109.1cm/sAoV VTI22.5cm AO Peak GR.4.8mmHgLVOT VTI 14.62cm AO Mean GR.3mmHg Mitral Valve MV E Nizfzwvq23.2cm/sMV E Peak Gr.5mmHg MV DECEL [id number] A Kmkwohpb82.7cm/s MV E Mean Gr.2mmHgE/A Ratio0.6 TDI Lateral E' P. V4.44cm/sMedial E' P. V4.38cm/s E/Lateral E'12.2E/Medial E'12.4 Tricuspid Valve TR P. [id number]/sRAP [id number] TR Peak Gr.[id number] LEFT VENTRICLE The Left Ventricle is mildly dilated. There is normal left ventricular wall thickness. The systolic f unction is moderately impaired. The Ejection Fraction is estimated at 30%. There is global hypokinesi s of the left ventricle. The mid to distal septal wall is akinetic through the apex and through the d istal lateral wall. Transmitral Doppler flow pattern is Grade I-abnormal relaxation pattern. RIGHT VENTRICLE The right ventricle is normal size. There is normal right ventricular wall thickness. The right ventr icular systolic function is normal. ATRIA The left atrium size is normal. The right atrium size is normal. The interatrial septum is intact wit h no evidence for an atrial septal defect or patent foramen ovale as noted on 2-D or Doppler imaging. AORTIC VALVE The aortic valve is not well visualized. Doppler and Color Flow revealed no significant aortic regurg itation. There is no significant aortic valvular stenosis. Calculated aortic valve area is 2.14 cm2 w ith maximum pressure gradient of 6 mmHg and mean pressure gradient of 3 mmHg. MITRAL VALVE The mitral valve is normal in structure and function. There is no evidence of mitral valve prolapse. There is no mitral valve stenosis. Doppler and Color-flow revealed trace mitral regurgitation. TRICUSPID VALVE The tricuspid valve is normal in structure and function. Doppler and Color Flow revealed mild to mode rate tricuspid regurgitation with an estimated PAP of 37 mmHg. There is no tricuspid valve stenosis. PULMONIC VALVE The pulmonic valve is not well visualized. Doppler and Color Flow revealed no pulmonic valvular regur gitation. GREAT VESSELS The aortic root is normal in size. The IVC is normal in size and collapses >50% with inspiration. PERICARDIAL EFFUSION There is no evidence of significant pericardial effusion. Critical Notification Critical Value: No <Conclusion> The Left Ventricle is mildly dilated. The systolic function is moderately impaired. The Ejection Fraction is estimated at 30%. There is global hypokinesis of the left ventricle. The mid to distal septal wall is akinetic through the apex and through the distal lateral wall. Doppler and Color Flow revealed no significant aortic regurgitation. There is no significant aortic valvular stenosis. Doppler and Color-flow revealed trace mitral regurgitation. Doppler and Color Flow revealed mild to moderate tricuspid regurgitation with an estimated PAP of 37 mmHg. Signed by : Konstantin Owen MD Electronically Approved : 01/05/2021 17:06:34
[2021-01-05] MEDS ORDERED: ATORVASTATIN CALCIUM 20 MG TABLET PO SCH (21:00)
[2021-01-05] MEDS ORDERED: INSULIN GLARGINE SYRINGE. SQ SCH (21:00)
[2021-01-06 02:58] VITALS: BP 160/69
[2021-01-06 06:06] VITALS: BP 130/60
[2021-01-06] MEDS: diphenhydrAMINE HCL 25 MG CAPSULE PO SCH ×2 (06:53→11:16)
[2021-01-06 07:53] LABS: BASO % 0 % (0-3); EOS % 0 % (0-3); HEMATOCRIT 34.6 % (36.0-47.0); HEMOGLOBIN 11.7 g/dL (12.0-15.5); LYMPH # 1.6 x10^3/uL (1.0-4.8); LYMPH % 12 % (24-48); MEAN CORPUSCULAR HEMOGLOBIN 31 pg (25-35); MEAN CORPUSCULAR HGB CONC 34 g/dL (31-37); MEAN CORPUSCULAR VOLUME 90 fL (79-100); MONO # 1.3 x10^3/uL (0.0-1.1); MONO % 9 % (0-9); NEUT # 11.4 x10^3/uL (1.8-7.7); NEUT % 80 % (31-73); PLATELET COUNT 254 x10^3/uL (140-400); RED BLOOD COUNT 3.83 x10^6/uL (3.50-5.40); WHITE BLOOD COUNT 14.3 x10^3/uL (4.0-11.0)
[2021-01-06] MEDS ORDERED: ASPIRIN ENTERIC COATED 81 MG TABLET.DR. PO SCH (08:00)
[2021-01-06 08:06] LABS: CALCIUM 8.9 mg/dL (8.5-10.1); CREATININE 1.2 mg/dL (0.6-1.0); GFR 43.7; POTASSIUM 4.6 mmol/L (3.5-5.1)
[2021-01-06] MEDS: CLOPIDOGREL BISULFATE 75 MG TABLET PO SCH (08:24)
[2021-01-06] MEDS: CARVEDILOL 3.125 MG TABLET. PO SCH (08:25)
[2021-01-06] MEDS ORDERED: SPIRONOLACTONE 25 MG TABLET PO SCH (09:00)
[2021-01-06] MEDS ORDERED: SACUBITRIL/VALSARTAN 24/26MG TABLET. PO SCH (09:00)
--- NOTE | 2021-01-06 09:52 | PDOC ---
PROGRESS NOTES Date of Service: DATE: 01/06/21 TIME: 09:52 Chief Complaint Chief Complaint VTE Prophylaxis Ordered VTE Prophylaxis Devices: Yes VTE Pharmacological Prophylaxi: Yes DISCHARGE DX Assessment/Plan impression Angina Elevated troponin i c/w demand ischemia CAD with hx stent// placed stent in the left circumflex cath shows patent anatomy ON pLAVIX AND ASA Takotsubo's cardiomyopathy with ejection fraction estimated at 25 to 30% Hypertension Hyperlipidemia PLAN ADMIT Consult cardiology home meds DVT PROPHYLAXIS TELE BED REPEAT CARDIAC CATH 01-05 Entresto, /Spironolactonine, Metoprolol LX and Jardiance. Cardiac rehab referral D/C PLANNING 35 MIN Justifications for Admission Justifications for Admission Other Justification History of Present Illness History of Present Illness Identification/Chief Complaint Chief Complaint CHEST PAIN History of Present Illness History of Present Illness Ms. Balderrama is a 74 old female who presented to ER with chest pain. RECENT left heart cath with no significant coronary stenosis with patent previously placed stent in the left circumflex. 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 Echocardiogram shows mildly decreased LV systolic function at 40-45%. BUT CATH suggested Takotsubo's cardiomyopathy with ejection fraction estimated at 25 to 30% NSTEMI 11 months ago, at that time had a heart cath without any occlusions that showed Takotsubo cardiomyopathy, patient has a history of 3 prior stents. States she has been compliant with her aspirin and Plavix. Has had both of her Pfizer vaccines. Denies any history of tobacco, alcohol, or drug use PLAN Entresto, Spironolactonine, Metoprolol LX and Jardiance. Monitor overnight and DC tomorrow. ADMITCardiac rehab referral Past Medical History Cardiovascular: CAD, HTN, Hyperlipidemia Heme/Onc: Anemia NOS Musculoskeletal: Osteoarthritis Renal/: UTI, Other Endocrine: Diabetes Past Surgical History Past Surgical History: Tonsillectomy, Hysterectomy, Other Family History Family History: Coronary Artery Disease, Hypertension Social History Smoke: No ALCOHOL: rare Drugs: None Current Medications Current Medications Current Medications Aspirin (Aspirin Chewable) 324 mg 1X ONCE PO ; Start 01/04/21 at 23:00; Stop 01/04/21 at 23:01; Status DC Nitroglycerin (Nitrostat) 0.4 mg PRN Q5MIN PRN SL CP RATING > 1/10 Last administered on 01/04/21at 23:26; Start 01/04/21 at 22:30; Stop 01/05/21 at 00:18; Status DC Morphine Sulfate (Morphine Sulfate) 2 mg 1X ONCE IV Last administered on 01/04/21at 22:45; Start 01/04/21 at 23:00; Stop 01/04/21 at 23:01; Status DC Ondansetron HCl (Zofran) 4 mg 1X ONCE IVP Last administered on 01/04/21at 22:46; Start 01/04/21 at 23:00; Stop 01/04/21 at 23:01; Status DC Morphine Sulfate (Morphine Sulfate) 2 mg 1X ONCE IV Last administered on 01/04/21at 23:53; Start 01/05/21 at 00:00; Stop 01/05/21 at 00:01; Status DC Ondansetron HCl (Zofran) 4 mg PRN Q8HRS PRN IVP NAUSEA/VOMITING 1ST CHOICE Last administered on 01/05/21at 08:05; Start 01/05/21 at 00:15; Stop 01/06/21 at 00:14 Morphine Sulfate (Morphine Sulfate) 4 mg PRN Q2HR PRN IVP SEVERE PAIN 7-10 Last administered on 01/05/21at 07:59; Start 01/05/21 at 00:15; Stop 01/06/21 at 00:14 Acetaminophen (Tylenol) 650 mg PRN Q4HRS PRN PO FEVER > 100.3'F Last administered on 01/05/21at 06:33; Start 01/05/21 at 00:15; Stop 01/06/21 at 00:14 Nitroglycerin (Nitrostat) 0.4 mg PRN Q5MIN PRN SL CHEST PAIN; Start 01/05/21 at 00:15; Stop 01/06/21 at 00:14 Hydromorphone HCl (Dilaudid) 1 mg 1X ONCE IVP Last administered on 01/05/21at 04:03; Start 01/05/21 at 03:30; Stop 01/05/21 at 03:31; Status DC Heparin Sodium (Porcine) (Heparin Sodium) 3,650 unit 1X ONCE IV Last administered on 01/05/21at 03:40; Start 01/05/21 at 03:30; Stop 01/05/21 at 03:31; Status DC Heparin Sodium/ Dextrose 250 ml @ 0 mls/hr CONT PRN IV PER PROTOCOL Last administered on 01/05/21at 03:44; Start 01/05/21 at 03:00 Heparin Sodium (Porcine) (Heparin Sodium) 1,500 unit PRN Q6HRS PRN IV FOR UFH LEVEL LESS THAN 0.2; Start 01/05/21 at 03:00 Info (Anti-Coagulation Monitoring By Pharmacy) 1 each PRN DAILY PRN MC PER PROTOCOL Last administered on 01/05/21at 04:59; Start 01/05/21 at 03:00 Fentanyl Citrate (Fentanyl 2ml Vial) 75 mcg PRN Q3HRS PRN IVP SEVERE PAIN 7-10; Start 01/05/21 at 08:45 Active Scripts Active Amlodipine Besylate 5 Mg Tablet 5 Mg PO DAILY Atorvastatin Calcium 20 Mg Tablet 20 Mg PO QHS Carvedilol (Carvedilol) 3.125 Mg Tablet 3.125 Mg PO BIDWMEALS Reported Losartan Potassium 100 Mg Tablet 100 Mg PO DAILY Tresiba (Insulin Degludec) 100 Unit/1 Ml Vial 30 Unit SQ HS Percocet 10-325 Mg Tablet (Oxycodone/Acetaminophen) 1 Each Tablet 1 Tab PO QIDPRN PRN MDD 4 Tablet(s) 30 Days Benadryl (Diphenhydramine Hcl) 25 Mg Capsule 25 Mg PO Q6HRS Metformin Hcl 1,000 Mg Tablet 1,000 Mg PO BIDWMEALS Aspirin 81 Mg Tab.chew 1 Tab PO DAILY Clopidogrel (Clopidogrel Bisulfate) 75 Mg Tablet 75 Mg PO DAILY Allergies Allergies: Coded Allergies: Iodinated Contrast Media (Verified Allergy, Severe, 02/18/20) Tetracyclines (Verified Allergy, Severe, nausea and vomiting, 02/17/20) ROS General: YES: Fatigue; No: Chills, Night Sweats, Malaise, Appetite, Other PSYCHOLOGICAL ROS: No: Anxiety, Behavioral Disorder, Concentration difficultie, Decreased libido, Depression, Disorientation, Hallucinations, Hostility, Irritablity, Memory difficulties, Mood Swings, Obsessive thoughts, Physical abuse, Sexual abuse, Sleep disturbances, Suicidal ideation, Other Eyes: Yes Decreased vision; No Blurry vision, No Double vision, No Dry eyes, No Excessive tearing, No Eye Pain, No Itchy Eyes, No Loss of vision, No Photophobia, No Scotomata, No Uses contacts, No Uses glasses, No Other HEENT: No: Heacaches, Visual Changes, Hearing change, Nasal congestion, Nasal discharge, Oral lesions, Sinus pain, Sore Throat, Epistaxis, Sneezing, Snoring, Tinnitus, Vertigo, Vocal changes, Other ALLERGY AND IMMUNOLOGY: YES: Hives; No: Insect Bite Sensitivity, Itchy/Watery Eyes, Nasal Congestion, Post Nasal Drip, Seasonal Allergies, Other Hematological and Lymphatic: No: Bleeding Problems, Blood Clots, Blood Transfusions, Brusing, Night Sweats, Pallor, Swollen Lymph Nodes, Other ENDOCRINE: No: Breast Changes, Galactorrhea, Hair Pattern Changes, Hot Flashes, Malaise/lethargy, Mood Swings, Palpitations, Polydipsia/polyuria, Skin Changes, Temperature Intolerance, Unexpected Weight Changes, Other Breast: No New/Changing Breast Lumps, No Nipple changes, No Nipple discharge, No Other Respiratory: No: Cough, Hemoptysis, Orthopnea, Pleuritic Pain, Shortness of breath, SOB with excertion, Sputum Changes, Stridor, Tachypnea, Wheezing, Other Cardiovascular: yes Chest Pain, yes Orthopnea; No Palpitations, No Paroxysmal Noc. Dyspnea, No Edema, No Lt Headedness, No Other Gastrointestinal: No Nausea, No Vomiting, No Abdominal Pain, No Diarrhea, No Constipation, No Melena, No Hematochezia, No Other Genitourinary: No Dysuria, No Frequency, No Incontinence, No Hematuria, No Retention, No Discharge, No Urgency, No Pain, No Flank Pain, No Other, No , No , No , No , No , No , No Musculoskeletal: Yes Joint Stiffness; No Gait Disturbance, No Joint Pain, No Joint Swelling, No Muscle Pain, No Muscular Weakness, No Pain In:, No Swelling In:, No Other Neurological: No Behavorial Changes, No Bowel/Bladder ControlChng, No Confusion, No Dizziness, No Gait Disturbance, No Headaches, No Impaired Coord/[place], No Memory Loss, No Numbness/Tingling, No Seizures, No Speech Problems, No Tremors, No Visual Changes, No Weakness, No Other Skin: Yes Dry Skin; No Eczema, No Hair Changes, No Lumps, No Mole Changes, No Mottling, No Nail Changes, No Pruritus, No Rash, No Skin Lesion Changes, No Other, No Acne Vitals Vitals Vital Signs Date Time Temp Pulse Resp B/P (MAP) Pulse Ox O2 Delivery O2 Flow Rate FiO2 01/06/21 08:25 72 130/60 01/06/21 08:00 Room Air 01/06/21 06:06 98.0 19 96 98.0 01/05/21 14:36 2.0 Physical Exam General: Alert, Oriented X3, Cooperative, No acute distress Heart: Regular rate (SR/ST), Normal S1, Normal S2, No murmurs Abdomen: Normal bowel sounds, Soft Extremities: No cyanosis Skin: No breakdown, No significant lesion Labs LABS CASE TECHNIQUE IV conscious sedation was used throughout procedure with appropriate monitoring and was performed in the presence of a registered nurse who was an independent trained observer other than the physician performing the procedure. During this case, Fluoroscopy and low osmolar contrast were used for imaging. Specimen(s) Removed: N/A Estimated Blood loss: 15 cc's. PROCEDURE NARRATIVE Informed consent: Written informed consent was obtained from the patient after adequate discussion of the risks and benefits of the procedure. Procedure details: ACCESS: The right wrist was prepped and draped in usual sterile fashion. Under 1% lidocaine local anesthesia a 6 Persian Terumo sheath was placed in the right radial artery via the Seldinger technique. DIAGNOSTIC ANGIOGRAPHY: Right and left coronary arteries were engaged with a 6 Persian TIG catheter. Diagnostic angiography in multiple views were obtained. Next, a 5 Persian pigtail catheter was placed in the left ventricle and a LVEDP was measured. A pullback was performed after left ventriculography. All catheters were exchanged over J-tip guidewire. FINDINGS: ======= Aorta: 110/80 LVEDP: 24 mmHg Left ventriculogram: EF 35%, distal half of the LV is severely hypokinetic, consistent with stress induced CMP. Coronary angiography: LM: Large caliber vessel with normal angiographic appearance LAD: Moderate caliber vessel with a proximal 50% stenosis. D1: Small caliber vessel with normal angiographic appearance LCX: Small caliber vessel with proximal diffuse 50% in stent restenosis and mild diffuse luminal irregularities distally. RCA: Large caliber dominant vessel with mild luminal irregularities of up to 30% RPDA: Moderate caliber vessel with mild luminal irregularities. CLOSURE: At case completion the right radial sheath was removed and a Terumo radial band was applied with 11 mL of air. Hemostasis was achieved. COMPLICATIONS: No acute complications noted Conclusion 1. Acute on chronic systolic and diastolic HF. LVEDP 24 mm Hg. 2. Severe LV dysfunction. EF 30-35% 3. Two vessel coronary disease with patent stent in the LCx. 4. 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 Recommendations Cardiac Rehabilitation Referral Aggressive Medical Therapy Signed by : Any Zuleta, Electronically Approved : 01/05/2021 12:17:25 DICTATED and SIGNED BY: ANY ZULETA MD DATE: 01/05/21 [id number] Laboratory Tests Test 01/05/21 20:44 01/06/21 05:50 01/06/21 07:41 Glucose (Fingerstick) 162 mg/dL (70-99) 152 mg/dL (70-99) White Blood Count 14.3 x10^3/uL (4.0-11.0) Red Blood Count 3.83 x10^6/uL (3.50-5.40) Hemoglobin 11.7 g/dL (12.0-15.5) Hematocrit 34.6 % (36.0-47.0) Mean Corpuscular Volume 90 fL (79-100) Mean Corpuscular Hemoglobin 31 pg (25-35) Mean Corpuscular Hemoglobin Concent 34 g/dL (31-37) Red Cell Distribution Width 13.0 % (11.5-14.5) Platelet Count 254 x10^3/uL (140-400) Neutrophils (%) (Auto) 80 % (31-73) Lymphocytes (%) (Auto) 12 % (24-48) Monocytes (%) (Auto) 9 % (0-9) Eosinophils (%) (Auto) 0 % (0-3) Basophils (%) (Auto) 0 % (0-3) Neutrophils # (Auto) 11.4 x10^3/uL (1.8-7.7) Lymphocytes # (Auto) 1.6 x10^3/uL (1.0-4.8) Monocytes # (Auto) 1.3 x10^3/uL (0.0-1.1) Eosinophils # (Auto) 0.0 x10^3/uL (0.0-0.7) Basophils # (Auto) 0.0 x10^3/uL (0.0-0.2) Sodium Level 141 mmol/L (136-145) Potassium Level 4.6 mmol/L (3.5-5.1) Chloride Level 107 mmol/L (98-107) Carbon Dioxide Level 25 mmol/L (21-32) Anion Gap 9 (6-14) Blood Urea Nitrogen 30 mg/dL (7-20) Creatinine 1.2 mg/dL (0.6-1.0) Estimated GFR (Cockcroft-Gault) 43.7 Glucose Level 180 mg/dL (70-99) Calcium Level 8.9 mg/dL (8.5-10.1) Comment Review of Relevant I have reviewed the following items mihai (where applicable) has been applied. Labs Laboratory Tests Test 01/04/21 22:35 01/05/21 02:05 01/05/21 02:14 01/05/21 05:30 White Blood Count 11.9 x10^3/uL (4.0-11.0) Red Blood Count 4.08 x10^6/uL (3.50-5.40) Hemoglobin 12.4 g/dL (12.0-15.5) Hematocrit 36.9 % (36.0-47.0) Mean Corpuscular Volume 90 fL (79-100) Mean Corpuscular Hemoglobin 30 pg (25-35) Mean Corpuscular Hemoglobin Concent 34 g/dL (31-37) Red Cell Distribution Width 12.6 % (11.5-14.5) Platelet Count 321 x10^3/uL (140-400) Neutrophils (%) (Auto) 39 % (31-73) Lymphocytes (%) (Auto) 44 % (24-48) Monocytes (%) (Auto) 10 % (0-9) Eosinophils (%) (Auto) 6 % (0-3) Basophils (%) (Auto) 1 % (0-3) Neutrophils # (Auto) 4.6 x10^3/uL (1.8-7.7) Lymphocytes # (Auto) 5.2 x10^3/uL (1.0-4.8) Monocytes # (Auto) 1.2 x10^3/uL (0.0-1.1) Eosinophils # (Auto) 0.7 x10^3/uL (0.0-0.7) Basophils # (Auto) 0.1 x10^3/uL (0.0-0.2) Prothrombin Time 13.5 SEC (11.7-14.0) Prothromb Time International Ratio 1.0 (0.8-1.1) Sodium Level 141 mmol/L (136-145) Potassium Level 4.5 mmol/L (3.5-5.1) Chloride Level 106 mmol/L (98-107) Carbon Dioxide Level 28 mmol/L (21-32) Anion Gap 7 (6-14) Blood Urea Nitrogen 26 mg/dL (7-20) Creatinine 1.1 mg/dL (0.6-1.0) Estimated GFR (Cockcroft-Gault) 48.3 BUN/Creatinine Ratio 24 (6-20) Glucose Level 92 mg/dL (70-99) Calcium Level 9.8 mg/dL (8.5-10.1) Magnesium Level 1.9 mg/dL (1.8-2.4) Total Bilirubin 1.5 mg/dL (0.2-1.0) Aspartate Amino Transf (AST/SGOT) 16 U/L (15-37) Alanine Aminotransferase (ALT/SGPT) 17 U/L (14-59) Alkaline Phosphatase 77 U/L (46-116) Troponin I Quantitative 0.021 ng/mL (0.000-0.055) 0.701 ng/mL (0.000-0.055) 1.318 ng/mL (0.000-0.055) RN-Fod-E-Type Natriuretic Peptide 121 pg/mL (0-449) Total Protein 7.7 g/dL (6.4-8.2) Albumin 4.3 g/dL (3.4-5.0) Albumin/Globulin Ratio 1.3 (1.0-1.7) Urine Collection Type Unknown Urine Color Yellow Urine Clarity Clear Urine pH 5.0 (<5.0-8.0) Urine Specific [place] 1.025 (1.000-1.030) Urine Protein Negative mg/dL (NEG-TRACE) Urine Glucose (UA) Negative mg/dL (NEG) Urine Ketones (Stick) Trace mg/dL (NEG) Urine Blood Negative (NEG) Urine Nitrite Negative (NEG) Urine Bilirubin Negative (NEG) Urine Urobilinogen Dipstick 0.2 mg/dL (0.2 mg/dL) Urine Leukocyte Esterase Negative (NEG) Urine RBC Occ /HPF (0-2) Urine WBC 1-4 /HPF (0-4) Urine Squamous Epithelial Cells Mod /LPF Urine Bacteria Few /HPF (0-FEW) Urine Hyaline Casts Few /HPF Urine Mucus Mod /LPF Triglycerides Level 102 mg/dL (0-150) Cholesterol Level 139 mg/dL (0-200) LDL Cholesterol, Calculated 65 mg/dL (0-100) VLDL Cholesterol, Calculated 20 mg/dL (0-40) Non-HDL Cholesterol Calculated 85 mg/dL (0-129) HDL Cholesterol 54 mg/dL (40-60) Cholesterol/HDL Ratio 2.6 Test 01/05/21 07:52 01/05/21 20:44 01/06/21 05:50 01/06/21 07:41 Glucose (Fingerstick) 135 mg/dL (70-99) 162 mg/dL (70-99) 152 mg/dL (70-99) White Blood Count 14.3 x10^3/uL (4.0-11.0) Red Blood Count 3.83 x10^6/uL (3.50-5.40) Hemoglobin 11.7 g/dL (12.0-15.5) Hematocrit 34.6 % (36.0-47.0) Mean Corpuscular Volume 90 fL (79-100) Mean Corpuscular Hemoglobin 31 pg (25-35) Mean Corpuscular Hemoglobin Concent 34 g/dL (31-37) Red Cell Distribution Width 13.0 % (11.5-14.5) Platelet Count 254 x10^3/uL (140-400) Neutrophils (%) (Auto) 80 % (31-73) Lymphocytes (%) (Auto) 12 % (24-48) Monocytes (%) (Auto) 9 % (0-9) Eosinophils (%) (Auto) 0 % (0-3) Basophils (%) (Auto) 0 % (0-3) Neutrophils # (Auto) 11.4 x10^3/uL (1.8-7.7) Lymphocytes # (Auto) 1.6 x10^3/uL (1.0-4.8) Monocytes # (Auto) 1.3 x10^3/uL (0.0-1.1) Eosinophils # (Auto) 0.0 x10^3/uL (0.0-0.7) Basophils # (Auto) 0.0 x10^3/uL (0.0-0.2) Sodium Level 141 mmol/L (136-145) Potassium Level 4.6 mmol/L (3.5-5.1) Chloride Level 107 mmol/L (98-107) Carbon Dioxide Level 25 mmol/L (21-32) Anion Gap 9 (6-14) Blood Urea Nitrogen 30 mg/dL (7-20) Creatinine 1.2 mg/dL (0.6-1.0) Estimated GFR (Cockcroft-Gault) 43.7 Glucose Level 180 mg/dL (70-99) Calcium Level 8.9 mg/dL (8.5-10.1) Laboratory Tests Test 01/05/21 20:44 01/06/21 05:50 01/06/21 07:41 Glucose (Fingerstick) 162 mg/dL (70-99) 152 mg/dL (70-99) White Blood Count 14.3 x10^3/uL (4.0-11.0) Red Blood Count 3.83 x10^6/uL (3.50-5.40) Hemoglobin 11.7 g/dL (12.0-15.5) Hematocrit 34.6 % (36.0-47.0) Mean Corpuscular Volume 90 fL (79-100) Mean Corpuscular Hemoglobin 31 pg (25-35) Mean Corpuscular Hemoglobin Concent 34 g/dL (31-37) Red Cell Distribution Width 13.0 % (11.5-14.5) Platelet Count 254 x10^3/uL (140-400) Neutrophils (%) (Auto) 80 % (31-73) Lymphocytes (%) (Auto) 12 % (24-48) Monocytes (%) (Auto) 9 % (0-9) Eosinophils (%) (Auto) 0 % (0-3) Basophils (%) (Auto) 0 % (0-3) Neutrophils # (Auto) 11.4 x10^3/uL (1.8-7.7) Lymphocytes # (Auto) 1.6 x10^3/uL (1.0-4.8) Monocytes # (Auto) 1.3 x10^3/uL (0.0-1.1) Eosinophils # (Auto) 0.0 x10^3/uL (0.0-0.7) Basophils # (Auto) 0.0 x10^3/uL (0.0-0.2) Sodium Level 141 mmol/L (136-145) Potassium Level 4.6 mmol/L (3.5-5.1) Chloride Level 107 mmol/L (98-107) Carbon Dioxide Level 25 mmol/L (21-32) Anion Gap 9 (6-14) Blood Urea Nitrogen 30 mg/dL (7-20) Creatinine 1.2 mg/dL (0.6-1.0) Estimated GFR (Cockcroft-Gault) 43.7 Glucose Level 180 mg/dL (70-99) Calcium Level 8.9 mg/dL (8.5-10.1) Medications Current Medications Aspirin (Aspirin Chewable) 324 mg 1X ONCE PO ; Start 01/04/21 at 23:00; Stop 01/04/21 at 23:01; Status DC Nitroglycerin (Nitrostat) 0.4 mg PRN Q5MIN PRN SL CP RATING > 1/10 Last administered on 01/04/21at 23:26; Start 01/04/21 at 22:30; Stop 01/05/21 at 00:18; Status DC Morphine Sulfate (Morphine Sulfate) 2 mg 1X ONCE IV Last administered on 01/04/21at 22:45; Start 01/04/21 at 23:00; Stop 01/04/21 at 23:01; Status DC Ondansetron HCl (Zofran) 4 mg 1X ONCE IVP Last administered on 01/04/21at 22:46; Start 01/04/21 at 23:00; Stop 01/04/21 at 23:01; Status DC Morphine Sulfate (Morphine Sulfate) 2 mg 1X ONCE IV Last administered on 01/04/21at 23:53; Start 01/05/21 at 00:00; Stop 01/05/21 at 00:01; Status DC Ondansetron HCl (Zofran) 4 mg PRN Q8HRS PRN IVP NAUSEA/VOMITING 1ST CHOICE Last administered on 01/05/21at 08:05; Start 01/05/21 at 00:15; Stop 01/06/21 at 00:14; Status DC Morphine Sulfate (Morphine Sulfate) 4 mg PRN Q2HR PRN IVP SEVERE PAIN 7-10 Last administered on 01/05/21at 07:59; Start 01/05/21 at 00:15; Stop 01/06/21 at 00:14; Status DC Acetaminophen (Tylenol) 650 mg PRN Q4HRS PRN PO FEVER > 100.3'F Last administered on 01/05/21at 06:33; Start 01/05/21 at 00:15; Stop 01/06/21 at 00:14; Status DC Nitroglycerin (Nitrostat) 0.4 mg PRN Q5MIN PRN SL CHEST PAIN; Start 01/05/21 at 00:15; Stop 01/05/21 at 12:47; Status DC Hydromorphone HCl (Dilaudid) 1 mg 1X ONCE IVP Last administered on 01/05/21at 04:03; Start 01/05/21 at 03:30; Stop 01/05/21 at 03:31; Status DC Heparin Sodium (Porcine) (Heparin Sodium) 3,650 unit 1X ONCE IV Last a dministered on 01/05/21at 03:40; Start 01/05/21 at 03:30; Stop 01/05/21 at 03:31; Status DC Heparin Sodium/ Dextrose 250 ml @ 0 mls/hr CONT PRN IV PER PROTOCOL Last administered on 01/05/21at 03:44; Start 01/05/21 at 03:00; Stop 01/06/21 at 07:31; Status DC Heparin Sodium (Porcine) (Heparin Sodium) 1,500 unit PRN Q6HRS PRN IV FOR UFH LEVEL LESS THAN 0.2; Start 01/05/21 at 03:00; Stop 01/06/21 at 07:31; Status DC Info (Anti-Coagulation Monitoring By Pharmacy) 1 each PRN DAILY PRN MC PER PROTOCOL Last administered on 01/05/21at 04:59; Start 01/05/21 at 03:00; Stop 01/06/21 at 07:31; Status DC Fentanyl Citrate (Fentanyl 2ml Vial) 75 mcg PRN Q3HRS PRN IVP SEVERE PAIN 7-10; Start 01/05/21 at 08:45 Amlodipine Besylate (Norvasc) 5 mg DAILY PO Last administered on 01/06/21at 08:25; Start 01/05/21 at 10:00 Aspirin (Aspirin Chewable) 81 mg DAILY PO Last administered on 01/05/21at 10:26; Start 01/05/21 at 10:00; Stop 01/05/21 at 12:10; Status DC Atorvastatin Calcium (Lipitor) 20 mg QHS PO Last administered on 01/05/21at 21:36; Start 01/05/21 at 21:00 Carvedilol (Coreg) 3.125 mg BIDWMEALS PO Last administered on 01/06/21at 08:25; Start 01/05/21 at 10:00 Clopidogrel Bisulfate (Plavix) 75 mg DAILY PO Last administered on 01/06/21at 08:24; Start 01/05/21 at 10:00 Diphenhydramine HCl (Benadryl) 25 mg Q6HRS PO Last administered on 01/06/21at 06:53; Start 01/05/21 at 12:00 Oxycodone/ Acetaminophen (Percocet 10/325) 1 tab QIDPRN PRN PO PAIN; Start 01/05/21 at 09:15 Insulin Glargine (Lantus Syringe) 30 unit QHS SQ Last administered on 01/05/21at 21:43; Start 01/05/21 at 21:00 Losartan Potassium (Cozaar) 100 mg DAILY PO Last administered on 01/05/21at 10:26; Start 01/05/21 at 10:00; Stop 01/05/21 at 12:12; Status DC Metformin HCl (Glucophage) 1,000 mg BIDWMEALS PO ; Start 01/05/21 at 17:00; Stop 01/05/21 at 09:25; Status DC Nitroglycerin/ Dextrose 250 ml @ 0 mls/hr 1X ONCE IV Last administered on 01/05/21at 10:40; Start 01/05/21 at 09:30; Stop 01/05/21 at 09:31; Status DC Diphenhydramine HCl (Benadryl) 25 mg 1X ONCE IVP Last administered on 01/05/21at 10:10; Start 01/05/21 at 09:30; Stop 01/05/21 at 09:31; Status DC Methylprednisolone Sodium Succinate (SOLU-Medrol 125MG VIAL) 125 mg 1X ONCE IV Last administered on 01/05/21at 10:13; Start 01/05/21 at 09:30; Stop 01/05/21 at 09:31; Status DC Famotidine (Pepcid Vial) 20 mg 1X ONCE IVP Last administered on 01/05/21at 10:12; Start 01/05/21 at 09:30; Stop 01/05/21 at 09:31; Status DC Sodium Chloride 1,000 ml @ 75 mls/hr 1X ONCE IV Last administered on 01/05/21at 10:31; Start 01/05/21 at 09:30; Stop 01/05/21 at 22:49; Status DC Lidocaine HCl (Xylocaine-Mpf 1% 2ml Vial) 2 ml STK-MED ONCE .ROUTE ; Start 01/05/21 at 09:56; Stop 01/05/21 at 09:56; Status DC Iodixanol (Visipaque 320) 100 ml STK-MED ONCE .ROUTE ; Start 01/05/21 at 09:56; Stop 01/05/21 at 09:56; Status DC Heparin Sodium/ Sodium Chloride 1,500 ml @ As Directed STK-MED ONCE .ROUTE ; Start 01/05/21 at 09:56; Stop 01/05/21 at 09:56; Status DC Fentanyl Citrate (Fentanyl 2ml Vial) 100 mcg STK-MED ONCE .ROUTE ; Start 01/05/21 at 10:56; Stop 01/05/21 at 10:57; Status DC Midazolam HCl (Versed) 2 mg STK-MED ONCE .ROUTE ; Start 01/05/21 at 10:57; Stop 01/05/21 at 10:57; Status DC Heparin Sodium (Porcine) (Heparin Sodium) 10,000 unit STK-MED ONCE .ROUTE ; Start 01/05/21 at 10:57; Stop 01/05/21 at 10:57; Status DC Verapamil HCl (Verapamil) 5 mg STK-MED ONCE .ROUTE ; Start 01/05/21 at 10:57; Stop 01/05/21 at 10:57; Status DC Nitroglycerin (Nitroglycerin) 200 mcg STK-MED ONCE .ROUTE ; Start 01/05/21 at 10:57; Stop 01/05/21 at 10:57; Status DC Nitroglycerin (Nitroglycerin) 200 mcg 1X ONCE IART Last administered on 01/05/21 11:31; Start 01/05/21 at 11:30; Stop 01/05/21 at 11:35; Status DC Verapamil HCl (Verapamil) 2.5 mg 1X ONCE IART Last administered on 01/05/21at 11:31; Start 01/05/21 at 11:30; Stop 01/05/21 at 11:35; Status DC Heparin Sodium (Porcine) (Heparin Sodium) 2,500 unit 1X ONCE IART Last administered on 01/05/21at 11:31; Start 01/05/21 at 11:30; Stop 01/05/21 at 11:35; Status DC Heparin Sodium/ Sodium Chloride (HEPARIN for ARTERIAL LINE FLUSH) 1,000 unit 1X ONCE IART Last administered on 01/05/21at 11:30; Start 01/05/21 at 11:30; Stop 01/05/21 at 11:35; Status DC Heparin Sodium/ Sodium Chloride (HEPARIN for ARTERIAL LINE FLUSH) 1,000 unit 1X ONCE IART Last administered on 01/05/21at 11:30; Start 01/05/21 at 11:30; Stop 01/05/21 at 11:35; Status DC Midazolam HCl (Versed) 2 mg 1X ONCE IV Last administered on 01/05/21at 11:30; Start 01/05/21 at 11:30; Stop 01/05/21 at 11:35; Status DC Fentanyl Citrate (Fentanyl 2ml Vial) 100 mcg 1X ONCE IV Last administered on 01/05/21at 11:30; Start 01/05/21 at 11:30; Stop 01/05/21 at 11:35; Status DC Iodixanol (Visipaque 320) 100 ml 1X ONCE IART Last administered on 01/05/21at 11:49; Start 01/05/21 at 11:30; Stop 01/05/21 at 11:35; Status DC Lidocaine HCl (Xylocaine-Mpf 1% 2ml Vial) 2 ml 1X ONCE INJ Last administered on 01/05/21at 11:30; Start 01/05/21 at 11:30; Stop 01/05/21 at 11:35; Status DC Sodium Chloride (Normal Saline Flush) 3 ml QSHIFT PRN IV AFTER MEDS AND BLOOD DRAWS; Start 01/05/21 at 12:15 Aspirin (Ecotrin) 81 mg [id number] PO Last administered on 01/06/21at 08:22; Start 01/06/21 at 08:00 Nitroglycerin (Nitrostat) 0.4 mg PRN Q5MIN PRN SL CHEST PAIN; Start 01/05/21 at 12:15 Spironolactone (Aldactone) 25 mg DAILY PO Last administered on 01/06/21at 08:23; Start 01/06/21 at 09:00 Sacubitril/ Valsartan (Entresto 24 Mg-26 Mg) 1 tab BID PO Last administered on 01/06/21at 08:22; Start 01/06/21 at 09:00 Active Scripts Active Amlodipine Besylate 5 Mg Tablet 5 Mg PO DAILY Atorvastatin Calcium 20 Mg Tablet 20 Mg PO QHS Carvedilol (Carvedilol) 3.125 Mg Tablet 3.125 Mg PO BIDWMEALS Reported Losartan Potassium 100 Mg Tablet 100 Mg PO DAILY Tresiba (Insulin Degludec) 100 Unit/1 Ml Vial 30 Unit SQ HS Percocet 10-325 Mg Tablet (Oxycodone/Acetaminophen) 1 Each Tablet 1 Tab PO QIDPRN PRN MDD 4 Tablet(s) 30 Days Benadryl (Diphenhydramine Hcl) 25 Mg Capsule 25 Mg PO Q6HRS Metformin Hcl 1,000 Mg Tablet 1,000 Mg PO BIDWMEALS Aspirin 81 Mg Tab.chew 1 Tab PO DAILY Clopidogrel (Clopidogrel Bisulfate) 75 Mg Tablet 75 Mg PO DAILY Vitals/I & O Vital Sign - Last 24 Hours 01/05/21 01/05/21 01/05/21 01/05/21 10:00 10:26 10:27 10:27 Pulse 94 109 110 107 B/P (MAP) 175/104 (127) 175/104 175/104 175/104 Pulse Ox 95 O2 Delivery Room Air 01/05/21 01/05/21 01/05/21 01/05/21 11:00 11:30 11:31 11:59 Pulse 103 87 83 Resp 16 16 B/P (MAP) 177/93 (121) Pulse Ox 94 O2 Delivery Room Air Nasal Cannula O2 Flow Rate 2.0 01/05/21 01/05/21 01/05/21 01/05/21 12:14 12:30 12:45 12:48 Pulse 83 78 81 81 Resp 18 18 18 18 Pulse Ox 94 95 96 96 O2 Delivery Nasal Cannula Nasal Cannula Nasal Cannula Nasal Cannula O2 Flow Rate 2.0 2.0 2.0 2.0 01/05/21 01/05/21 01/05/21 01/05/21 13:04 13:05 13:20 13:35 Pulse 81 81 75 77 Resp 18 18 18 18 Pulse Ox 94 94 94 94 O2 Delivery Nasal Cannula Nasal Cannula Nasal Cannula Nasal Cannula O2 Flow Rate 2.0 2.0 2.0 2.0 01/05/21 01/05/21 01/05/21 01/05/21 13:45 13:55 14:05 14:21 Pulse 77 77 77 73 Resp 18 19 Pulse Ox 94 94 94 94 O2 Delivery Nasal Cannula Nasal Cannula Nasal Cannula Nasal Cannula O2 Flow Rate 2.0 2.0 2.0 2.0 01/05/21 01/05/21 01/05/21 01/05/21 14:36 15:00 15:03 15:33 Pulse 73 73 73 Resp 19 19 17 Pulse Ox 98 92 92 O2 Delivery Nasal Cannula Room Air Room Air Room Air O2 Flow Rate 2.0 01/05/21 01/05/21 01/05/21 01/05/21 16:03 16:30 17:10 17:18 Temp 98.3 98.3 Pulse 72 94 83 Resp 17 18 B/P (MAP) 132/68 (89) 125/69 Pulse Ox 93 95 O2 Delivery Room Air Room Air Room Air 01/05/21 01/05/21 01/05/21 01/06/21 19:30 20:40 22:40 02:58 Temp 98.3 98.1 98.0 98.3 98.1 98.0 Pulse 69 72 57 Resp 19 19 19 B/P (MAP) 134/76 (95) 115/65 (82) 160/69 (99) Pulse Ox 93 98 92 O2 Delivery Room Air Room Air Room Air Room Air 01/06/21 01/06/21 01/06/2101/06/21 06:06 08:00 08:22 08:25 Temp 98.0 98.0 Pulse 72 72 72 Resp 19 B/P (MAP) 130/60 (83) 130/60 130/60 Pulse Ox 96 O2 Delivery Room Air Room Air 01/06/21 08:25 Pulse 72 B/P (MAP) 130/60 Intake and Output 01/05/21 01/05/21 01/06/21 15:00 23:00 07:00 Intake Total 500 ml 200 ml Output Total 300 ml Balance 500 ml -100 ml Justicifation of Admission Dx: Justifications for Admission: Justification of Admission Dx: N/A KANWAL LEMOS MD Jan 06, 2021 09:52
[2021-01-06 11:00] VITALS: BP 123/66
--- NOTE | 2021-01-06 11:15 | NUR ---
SS following for discharge planning. SS reviewed pt chart and discussed with pt RN. Pt is from home with spouse and is currently on room air. Pt had heart cath on 01/05/2021. Cardiology adjusting medications. Discharge plan is currently to home when medically ready for discharge. SS will continue to follow for discharge planning. Addendum: 01/06/21 at 1620 by ALYSHA FORREST SS Discharge orders received for home healthcare. Discharge orders and referral phoned and faxed to [facility], ; fax [phone].
--- NOTE | 2021-01-06 12:36 | PDOC ---
CANDICE REED LADLE PATCHER 01/06/21 1236: CARDIO Progress Notes Date and Time Date of Service 01/06/21 Time of Evaluation 1230 Subjective Subjective: No Chest Pain, No shortness of breath, No Palpitations Vitals Vitals Vital Signs Date Time Temp Pulse Resp B/P (MAP) Pulse Ox O2 Delivery O2 Flow Rate FiO2 01/06/21 11:00 97.3 89 20 123/66 (85) 96 Room Air 97.3 01/05/21 14:36 2.0 Weight Weight [ ] Input and Output Intake and Output Intake and Output 01/06/21 07:00 Intake Total 700 ml Output Total 300 ml Balance 400 ml Intake Oral 700 ml Output Urine Total 300 ml # Voids 2 Laboratory Labs Laboratory Tests Test 01/05/21 20:44 01/06/21 05:50 01/06/21 07:41 01/06/21 12:09 Glucose (Fingerstick) 162 mg/dL (70-99) 152 mg/dL (70-99) 188 mg/dL (70-99) White Blood Count 14.3 x10^3/uL (4.0-11.0) Red Blood Count 3.83 x10^6/uL (3.50-5.40) Hemoglobin 11.7 g/dL (12.0-15.5) Hematocrit 34.6 % (36.0-47.0) Mean Corpuscular Volume 90 fL (79-100) Mean Corpuscular Hemoglobin 31 pg (25-35) Mean Corpuscular Hemoglobin Concent 34 g/dL (31-37) Red Cell Distribution Width 13.0 % (11.5-14.5) Platelet Count 254 x10^3/uL (140-400) Neutrophils (%) (Auto) 80 % (31-73) Lymphocytes (%) (Auto) 12 % (24-48) Monocytes (%) (Auto) 9 % (0-9) Eosinophils (%) (Auto) 0 % (0-3) Basophils (%) (Auto) 0 % (0-3) Neutrophils # (Auto) 11.4 x10^3/uL (1.8-7.7) Lymphocytes # (Auto) 1.6 x10^3/uL (1.0-4.8) Monocytes # (Auto) 1.3 x10^3/uL (0.0-1.1) Eosinophils # (Auto) 0.0 x10^3/uL (0.0-0.7) Basophils # (Auto) 0.0 x10^3/uL (0.0-0.2) Sodium Level 141 mmol/L (136-145) Potassium Level 4.6 mmol/L (3.5-5.1) Chloride Level 107 mmol/L (98-107) Carbon Dioxide Level 25 mmol/L (21-32) Anion Gap 9 (6-14) Blood Urea Nitrogen 30 mg/dL (7-20) Creatinine 1.2 mg/dL (0.6-1.0) Estimated GFR (Cockcroft-Gault) 43.7 Glucose Level 180 mg/dL (70-99) Calcium Level 8.9 mg/dL (8.5-10.1) Physical Exam HEENT: Neck Supple W Full Motion Chest: Symmetric LUNGS: Clear to Auscultation Heart: RRR, no jug vein distention Abdomen: Soft N/T Extremities: No Edema Neurology: alert, oriented, follow commands Assessment Assessment 1. NSTEMI: Cath revealed patent LCx stent and no new changes. 2. Chronic systolic CHF, Cardiomyopathy; Echo with LVEF 30%. 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 HTN: controlled 4. HLP; statin 5. DM2 Recommendations Secondary prevention measures HF optimization with Entresto, Spironolactonine, Coreg, and Jardiance. Cardiac rehab referral Follow up in our office as scheduled. Justicifation of Admission Dx: Justifications for Admission: Justification of Admission Dx: N/A ANY WARD MD 01/07/21 1057: CARDIO Progress Notes Plan Plan Late entry for 01/06/21 Pt. seen and examined. Agree with above DATABASE SUPPORT note. Supportive care DEREKCANDICE SHANKAR LADLE PATCHER Jan 06, 2021 12:36 ANY WARD MD Jan 07, 2021 10:57
--- NOTE | 2021-01-06 14:47 | PDOC3 ---
Discharge Summary Date of Admission: Jan 04, 2021 Date of Discharge: Jan 06, 2021 Follow-Up: 3-5 days Admitting Diagnosis comment: History of Present Illness History of Present Illness Ms. Balderrama is a 74 old female who presented to ER with chest pain. RECENT left heart cath with no significant coronary stenosis with patent previously placed stent in the left circumflex. 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 Echocardiogram shows mildly decreased LV systolic function at 40-45%. BUT CATH suggested Takotsubo's cardiomyopathy with ejection fraction estimated at 25 to 30% NSTEMI 11 months ago, at that time had a heart cath without any occlusions that showed Takotsubo cardiomyopathy, patient has a history of 3 prior stents. States she has been compliant with her aspirin and Plavix. Has had both of her Pfizer vaccines. Denies any history of tobacco, alcohol, or drug use PLAN Entresto, Spironolactonine, Metoprolol LX and Jardiance. Monitor overnight and DC tomorrow. ADMITCardiac rehab referral Past Medical History Cardiovascular: CAD, HTN, Hyperlipidemia Heme/Onc: Anemia NOS Musculoskeletal: Osteoarthritis Renal/: UTI, Other Endocrine: Diabetes Past Surgical History Past Surgical History: Tonsillectomy, Hysterectomy, Other Family History Family History: Coronary Artery Disease, Hypertension COMPLICATIONS NONE D/C CONDITION FAIR PROGNOSIS GUARDED D/C MEDS SEE Jul/ CARDIOLOGY 2 WEEKS, PCP IN ONE WEEK D/C DIET HEART HEALTHY DISCHARGE DX Assessment/Plan impression Angina Elevated troponin i c/w demand ischemia CAD with hx stent// placed stent in the left circumflex cath shows patent anatomy ON pLAVIX AND ASA Takotsubo's cardiomyopathy with ejection fraction estimated at 25 to 30% Hypertension Hyperlipidemia PLAN ADMIT Consult cardiology home meds DVT PROPHYLAXIS TELE BED REPEAT CARDIAC CATH 8-17 Entresto, /Spironolactonine, Metoprolol LX and Jardiance. Cardiac rehab referral D/C PLANNING 35 MIN Justifications for Admission Justifications for Admission Other Justification History of Present Illness History of Present Illness Identification/Chief Complaint Chief Complaint CHEST PAIN History of Present Illness History of Present Illness Ms. Balderrama is a 74 old female who presented to ER with chest pain. RECENT left heart cath with no significant coronary stenosis with patent previously placed stent in the left circumflex. 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 Echocardiogram shows mildly decreased LV systolic function at 40-45%. BUT CATH suggested Takotsubo's cardiomyopathy with ejection fraction estimated at 25 to 30% NSTEMI 11 months ago, at that time had a heart cath without any occlusions that showed Takotsubo cardiomyopathy, patient has a history of 3 prior stents. States she has been compliant with her aspirin and Plavix. Has had both of her Pfizer vaccines. Denies any history of tobacco, alcohol, or drug use PLAN Entresto, Spironolactonine, Metoprolol LX and Jardiance. Monitor overnight and DC tomorrow. ADMITCardiac rehab referral Past Medical History Cardiovascular: CAD, HTN, Hyperlipidemia Heme/Onc: Anemia NOS Musculoskeletal: Osteoarthritis Renal/: UTI, Other Endocrine: Diabetes Past Surgical History Past Surgical History: Tonsillectomy, Hysterectomy, Other Family History Family History: Coronary Artery Disease, Hypertension Social History Smoke: No ALCOHOL: rare Drugs: None Current Medications Current Medications Current Medications Aspirin (Aspirin Chewable) 324 mg 1X ONCE PO ; Start 01/04/21 at 23:00; Stop 01/04/21 at 23:01; Status DC Nitroglycerin (Nitrostat) 0.4 mg PRN Q5MIN PRN SL CP RATING > 1/10 Last administered on 01/04/21at 23:26; Start 01/04/21 at 22:30; Stop 01/05/21 at 00:18; Status DC Morphine Sulfate (Morphine Sulfate) 2 mg 1X ONCE IV Last administered on 01/04/21at 22:45; Start 01/04/21 at 23:00; Stop 01/04/21 at 23:01; Status DC Ondansetron HCl (Zofran) 4 mg 1X ONCE IVP Last administered on 01/04/21at 22:46; Start 01/04/21 at 23:00; Stop 01/04/21 at 23:01; Status DC Morphine Sulfate (Morphine Sulfate) 2 mg 1X ONCE IV Last administered on 01/04/21at 23:53; Start 01/05/21 at 00:00; Stop 01/05/21 at 00:01; Status DC Ondansetron HCl (Zofran) 4 mg PRN Q8HRS PRN IVP NAUSEA/VOMITING 1ST CHOICE Last administered on 01/05/21at 08:05; Start 01/05/21 at 00:15; Stop 01/06/21 at 00:14 Morphine Sulfate (Morphine Sulfate) 4 mg PRN Q2HR PRN IVP SEVERE PAIN 7-10 Last administered on 01/05/21at 07:59; Start 01/05/21 at 00:15; Stop 01/06/21 at 00:14 Acetaminophen (Tylenol) 650 mg PRN Q4HRS PRN PO FEVER > 100.3'F Last administered on 01/05/21at 06:33; Start 01/05/21 at 00:15; Stop 01/06/21 at 00:14 Nitroglycerin (Nitrostat) 0.4 mg PRN Q5MIN PRN SL CHEST PAIN; Start 01/05/21 at 00:15; Stop 01/06/21 at 00:14 Hydromorphone HCl (Dilaudid) 1 mg 1X ONCE IVP Last administered on 01/05/21at 04:03; Start 01/05/21 at 03:30; Stop 01/05/21 at 03:31; Status DC Heparin Sodium (Porcine) (Heparin Sodium) 3,650 unit 1X ONCE IV Last administered on 01/05/21at 03:40; Start 01/05/21 at 03:30; Stop 01/05/21 at 03: 31; Status DC Heparin Sodium/ Dextrose 250 ml @ 0 mls/hr CONT PRN IV PER PROTOCOL Last administered on 01/05/21at 03:44; Start 01/05/21 at 03:00 Heparin Sodium (Porcine) (Heparin Sodium) 1,500 unit PRN Q6HRS PRN IV FOR UFH LEVEL LESS THAN 0.2; Start 01/05/21 at 03:00 Info (Anti-Coagulation Monitoring By Pharmacy) 1 each PRN DAILY PRN MC PER PROTOCOL Last administered on 01/05/21at 04:59; Start 01/05/21 at 03:00 Fentanyl Citrate (Fentanyl 2ml Vial) 75 mcg PRN Q3HRS PRN IVP SEVERE PAIN 7-10; Start 01/05/21 at 08:45 Active Scripts Active Amlodipine Besylate 5 Mg Tablet 5 Mg PO DAILY Atorvastatin Calcium 20 Mg Tablet 20 Mg PO QHS Carvedilol (Carvedilol) 3.125 Mg Tablet 3.125 Mg PO BIDWMEALS Reported Losartan Potassium 100 Mg Tablet 100 Mg PO DAILY Tresiba (Insulin Degludec) 100 Unit/1 Ml Vial 30 Unit SQ HS Percocet 10-325 Mg Tablet (Oxycodone/Acetaminophen) 1 Each Tablet 1 Tab PO QIDPRN PRN MDD 4 Tablet(s) 30 Days Benadryl (Diphenhydramine Hcl) 25 Mg Capsule 25 Mg PO Q6HRS Metformin Hcl 1,000 Mg Tablet 1,000 Mg PO BIDWMEALS Aspirin 81 Mg Tab.chew 1 Tab PO DAILY Clopidogrel (Clopidogrel Bisulfate) 75 Mg Tablet 75 Mg PO DAILY Allergies Allergies: Coded Allergies: Iodinated Contrast Media (Verified Allergy, Severe, 02/18/20) Tetracyclines (Verified Allergy, Severe, nausea and vomiting, 02/17/20) ROS General: YES: Fatigue; No: Chills, Night Sweats, Malaise, Appetite, Other PSYCHOLOGICAL ROS: No: Anxiety, Behavioral Disorder, Concentration difficultie, Decreased libido, Depression, Disorientation, Hallucinations, Hostility, Irritablity, Memory difficulties, Mood Swings, Obsessive thoughts, Physical abuse, Sexual abuse, Sleep disturbances, Suicidal ideation, Other Eyes: Yes Decreased vision; No Blurry vision, No Double vision, No Dry eyes, No Excessive tearing, No Eye Pain, No Itchy Eyes, No Loss of vision, No Photophobia, No Scotomata, No Uses contacts, No Uses glasses, No Other HEENT: No: Heacaches, Visual Changes, Hearing change, Nasal congestion, Nasal discharge, Oral lesions, Sinus pain, Sore Throat, Epistaxis, Sneezing, Snoring, Tinnitus, Vertigo, Vocal changes, Other ALLERGY AND IMMUNOLOGY: YES: Hives; No: Insect Bite Sensitivity, Itchy/Watery Eyes, Nasal Congestion, Post Nasal Drip, Seasonal Allergies, Other Hematological and Lymphatic: No: Bleeding Problems, Blood Clots, Blood Transfusions, Brusing, Night Sweats, Pallor, Swollen Lymph Nodes, Other ENDOCRINE: No: Breast Changes, Galactorrhea, Hair Pattern Changes, Hot Flashes, Malaise/lethargy, Mood Swings, Palpitations, Polydipsia/polyuria, Skin Changes, Temperature Intolerance, Unexpected Weight Changes, Other Breast: No New/Changing Breast Lumps, No Nipple changes, No Nipple discharge, No Other Respiratory: No: Cough, Hemoptysis, Orthopnea, Pleuritic Pain, Shortness of breath, SOB with excertion, Sputum Changes, Stridor, Tachypnea, Wheezing, Other Cardiovascular: yes Chest Pain, yes Orthopnea; No Palpitations, No Paroxysmal Noc. Dyspnea, No Edema, No Lt Headedness, No Other Gastrointestinal: No Nausea, No Vomiting, No Abdominal Pain, No Diarrhea, No Constipation, No Melena, No Hematochezia, No Other Genitourinary: No Dysuria, No Frequency, No Incontinence, No Hematuria, No Retention, No Discharge, No Urgency, No Pain, No Flank Pain, No Other, No , No , No , No , No , No , No Musculoskeletal: Yes Joint Stiffness; No Gait Disturbance, No Joint Pain, No Joint Swelling, No Muscle Pain, No Muscular Weakness, No Pain In:, No Swelling In:, No Other Neurological: No Behavorial Changes, No Bowel/Bladder ControlChng, No C onfusion, No Dizziness, No Gait Disturbance, No Headaches, No Impaired Coord/balance, No Memory Loss, No Numbness/Tingling, No Seizures, No Speech Problems, No Tremors, No Visual Changes, No Weakness, No Other Skin: Yes Dry Skin; No Eczema, No Hair Changes, No Lumps, No Mole Changes, No Mottling, No Nail Changes, No Pruritus, No Rash, No Skin Lesion Changes, No Other, No Acne Vitals Vitals Vital Signs Date Time Temp Pulse Resp B/P (MAP) Pulse Ox O2 Delivery O2 Flow Rate FiO2 01/06/21 08:25 72 130/60 01/06/21 08:00 Room Air 01/06/21 06:06 98.0 19 96 98.0 01/05/21 14:36 2.0 Physical Exam General: Alert, Oriented X3, Cooperative, No acute distress Heart: Regular rate (SR/ST), Normal S1, Normal S2, No murmurs Abdomen: Normal bowel sounds, Soft Extremities: No cyanosis Skin: No breakdown, No significant lesion Labs LABS CASE TECHNIQUE IV conscious sedation was used throughout procedure with appropriate monitoring and was performed in the presence of a registered nurse who was an independent trained observer other than the physician performing the procedure. During this case, Fluoroscopy and low osmolar contrast were used for imaging. Specimen(s) Removed: N/A Estimated Blood loss: 15 cc's. PROCEDURE NARRATIVE Informed consent: Written informed consent was obtained from the patient after adequate discussion of the risks and benefits of the procedure. Procedure details: ACCESS: The right wrist was prepped and draped in usual sterile fashion. Under 1% lidocaine local anesthesia a 6 [place] Terumo sheath was placed in the right radial artery via the Seldinger technique. DIAGNOSTIC ANGIOGRAPHY: Right and left coronary arteries were engaged with a 6 [place] TIG catheter. Diagnostic angiography in multiple views were obtained. Next, a 5 [place] pigtail catheter was placed in the left ventricle and a LVEDP was measured. A pullback was performed after left ventriculography. All catheters were exchanged over J-tip guidewire. FINDINGS: ======= Aorta: 110/80 LVEDP: 24 mmHg Left ventriculogram: EF 35%, distal half of the LV is severely hypokinetic, consistent with stress induced CMP. Coronary angiography: LM: Large caliber vessel with normal angiographic appearance LAD: Moderate caliber vessel with a proximal 50% stenosis. D1: Small caliber vessel with normal angiographic appearance LCX: Small caliber vessel with proximal diffuse 50% in stent restenosis and mild diffuse luminal irregularities distally. RCA: Large caliber dominant vessel with mild luminal irregularities of up to 30% RPDA: Moderate caliber vessel with mild luminal irregularities. CLOSURE: At case completion the right radial sheath was removed and a Terumo radial band was applied with 11 mL of air. Hemostasis was achieved. COMPLICATIONS: No acute complications noted Conclusion 1. Acute on chronic systolic and diastolic HF. LVEDP 24 mm Hg. 2. Severe LV dysfunction. EF 30-35% 3. Two vessel coronary disease with patent stent in the LCx. 4. 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 Recommendations Cardiac Rehabilitation Referral Aggressive Medical Therapy Signed by : Any Zuleta, Electronically Approved : 01/05/2021 12:17:25 DICTATED and SIGNED BY: ANY ZULETA MD DATE: 01/05/21 [id number] Brief Hospital Course Ms. Balderrama is a 75 old [sex] who presented with [UNSTABLE ANGINA ] CONDITION AT DISCHARGE: Improved Discharge Medications Current Medications Aspirin (Aspirin Chewable) 324 mg 1X ONCE PO ; Start 01/04/21 at 23:00; Stop 01/04/21 at 23:01; Status DC Nitroglycerin (Nitrostat) 0.4 mg PRN Q5MIN PRN SL CP RATING > 1/10 Last administered on 01/04/21at 23:26; Start 01/04/21 at 22:30; Stop 01/05/21 at 00:18; Status DC Morphine Sulfate (Morphine Sulfate) 2 mg 1X ONCE IV Last administered on 01/04/21at 22:45; Start 01/04/21 at 23:00; Stop 01/04/21 at 23:01; Status DC Ondansetron HCl (Zofran) 4 mg 1X ONCE IVP Last administered on 01/04/21at 22:46; Start 01/04/21 at 23:00; Stop 01/04/21 at 23:01; Status DC Morphine Sulfate (Morphine Sulfate) 2 mg 1X ONCE IV Last administered on 01/04/21at 23:53; Start 01/05/21 at 00:00; Stop 01/05/21 at 00:01; Status DC Ondansetron HCl (Zofran) 4 mg PRN Q8HRS PRN IVP NAUSEA/VOMITING 1ST CHOICE Last administered on 01/05/21at 08:05; Start 01/05/21 at 00:15; Stop 01/06/21 at 00:14 ; Status DC Morphine Sulfate (Morphine Sulfate) 4 mg PRN Q2HR PRN IVP SEVERE PAIN 7-10 Last administered on 01/05/21at 07:59; Start 01/05/21 at 00:15; Stop 01/06/21 at 00:14; Status DC Acetaminophen (Tylenol) 650 mg PRN Q4HRS PRN PO FEVER > 100.3'F Last administered on 01/05/21at 06:33; Start 01/05/21 at 00:15; Stop 01/06/21 at 00:14; Status DC Nitroglycerin (Nitrostat) 0.4 mg PRN Q5MIN PRN SL CHEST PAIN; Start 01/05/21 at 00:15; Stop 01/05/21 at 12:47; Status DC Hydromorphone HCl (Dilaudid) 1 mg 1X ONCE IVP Last administered on 01/05/21at 04:03; Start 01/05/21 at 03:30; Stop 01/05/21 at 03:31; Status DC Heparin Sodium (Porcine) (Heparin Sodium) 3,650 unit 1X ONCE IV Last administered on 01/05/21at 03:40; Start 01/05/21 at 03:30; Stop 01/05/21 at 03: 31; Status DC Heparin Sodium/ Dextrose 250 ml @ 0 mls/hr CONT PRN IV PER PROTOCOL Last administered on 01/05/21at 03:44; Start 01/05/21 at 03:00; Stop 01/06/21 at 07:31; Status DC Heparin Sodium (Porcine) (Heparin Sodium) 1,500 unit PRN Q6HRS PRN IV FOR UFH LEVEL LESS THAN 0.2; Start 01/05/21 at 03:00; Stop 01/06/21 at 07:31; Status DC Info (Anti-Coagulation Monitoring By Pharmacy) 1 each PRN DAILY PRN MC PER PROTOCOL Last administered on 01/05/21at 04:59; Start 01/05/21 at 03:00; Stop 01/06/21 at 07:31; Status DC Fentanyl Citrate (Fentanyl 2ml Vial) 75 mcg PRN Q3HRS PRN IVP SEVERE PAIN 7-10; Start 01/05/21 at 08:45 Amlodipine Besylate (Norvasc) 5 mg DAILY PO Last administered on 01/06/21at 08:25; Start 01/05/21 at 10:00 Aspirin (Aspirin Chewable) 81 mg DAILY PO Last administered on 01/05/21at 10:26; Start 01/05/21 at 10:00; Stop 01/05/21 at 12:10; Status DC Atorvastatin Calcium (Lipitor) 20 mg QHS PO Last administered on 01/05/21at 21:36; Start 01/05/21 at 21:00; Stop 01/06/21 at 12:34; Status DC Carvedilol (Coreg) 3.125 mg BIDWMEALS PO Last administered on 01/06/21at 08:25; Start 01/05/21 at 10:00 Clopidogrel Bisulfate (Plavix) 75 mg DAILY PO Last administered on 01/06/21at 08:24; Start 01/05/21 at 10:00 Diphenhydramine HCl (Benadryl) 25 mg Q6HRS PO Last administered on 01/06/21at 11:16; Start 01/05/21 at 12:00 Oxycodone/ Acetaminophen (Percocet 10/325) 1 tab QIDPRN PRN PO PAIN; Start 01/05/21 at 09:15 Insulin Glargine (Lantus Syringe) 30 unit QHS SQ Last administered on 01/05/21at 21:43; Start 01/05/21 at 21:00 Losartan Potassium (Cozaar) 100 mg DAILY PO Last administered on 01/05/21at 10:26; Start 01/05/21 at 10:00; Stop 01/05/21 at 12:12; Status DC Metformin HCl (Glucophage) 1,000 mg BIDWMEALS PO ; Start 01/05/21 at 17:00; Stop 01/05/21 at 09:25; Status DC Nitroglycerin/ Dextrose 250 ml @ 0 mls/hr 1X ONCE IV Last administered on 01/05/21at 10:40; Start 01/05/21 at 09:30; Stop 01/05/21 at 09:31; Status DC Diphenhydramine HCl (Benadryl) 25 mg 1X ONCE IVP Last administered on 01/05/21at 10:10; Start 01/05/21 at 09:30; Stop 01/05/21 at 09:31; Status DC Methylprednisolone Sodium Succinate (SOLU-Medrol 125MG VIAL) 125 mg 1X ONCE IV Last administered on 01/05/21at 10:13; Start 01/05/21 at 09:30; Stop 01/05/21 at 09:31; Status DC Famotidine (Pepcid Vial) 20 mg 1X ONCE IVP Last administered on 01/05/21at 10:12; Start 01/05/21 at 09:30; Stop 01/05/21 at 09:31; Status DC Sodium Chloride 1,000 ml @ 75 mls/hr 1X ONCE IV Last administered on 01/05/21at 10:31; Start 01/05/21 at 09:30; Stop 01/05/21 at 22:49; Status DC Lidocaine HCl (Xylocaine-Mpf 1% 2ml Vial) 2 ml STK-MED ONCE .ROUTE ; Start 01/05/21 at 09:56; Stop 01/05/21 at 09:56; Status DC Iodixanol (Visipaque 320) 100 ml STK-MED ONCE .ROUTE ; Start 01/05/21 at 09:56; Stop 01/05/21 at 09:56; Status DC Heparin Sodium/ Sodium Chloride 1,500 ml @ As Directed STK-MED ONCE .ROUTE ; Start 01/05/21 at 09:56; Stop 01/05/21 at 09:56; Status DC Fentanyl Citrate (Fentanyl 2ml Vial) 100 mcg STK-MED ONCE .ROUTE ; Start 01/05/21 at 10:56; Stop 01/05/21 at 10:57; Status DC Midazolam HCl (Versed) 2 mg STK-MED ONCE .ROUTE ; Start 01/05/21 at 10:57; Stop 01/05/21 at 10:57; Status DC Heparin Sodium (Porcine) (Heparin Sodium) 10,000 unit STK-MED ONCE .ROUTE ; Start 01/05/21 at 10:57; Stop 01/05/21 at 10:57; Status DC Verapamil HCl (Verapamil) 5 mg STK-MED ONCE .ROUTE ; Start 01/05/21 at 10:57; Stop 01/05/21 at 10:57; Status DC Nitroglycerin (Nitroglycerin) 200 mcg STK-MED ONCE .ROUTE ; Start 01/05/21 at 10:57; Stop 01/05/21 at 10:57; Status DC Nitroglycerin (Nitroglycerin) 200 mcg 1X ONCE IART Last administered on 01/05/21at 11:31; Start 01/05/21 at 11:30; Stop 01/05/21 at 11:35; Status DC Verapamil HCl (Verapamil) 2.5 mg 1X ONCE IART Last administered on 01/05/21at 11:31; Start 01/05/21 at 11:30; Stop 01/05/21 at 11:35; Status DC Heparin Sodium (Porcine) (Heparin Sodium) 2,500 unit 1X ONCE IART Last administered on 01/05/21at 11:31; Start 01/05/21 at 11:30; Stop 01/05/21 at 11:35; Status DC Heparin Sodium/ Sodium Chloride (HEPARIN for ARTERIAL LINE FLUSH) 1,000 unit 1X ONCE IART Last administered on 01/05/21at 11:30; Start 01/05/21 at 11:30; Stop 01/05/21 at 11:35; Status DC Heparin Sodium/ Sodium Chloride (HEPARIN for ARTERIAL LINE FLUSH) 1,000 unit 1X ONCE IART Last administered on 01/05/21at 11:30; Start 01/05/21 at 11:30; Stop 01/05/21 at 11:35; Status DC Midazolam HCl (Versed) 2 mg 1X ONCE IV Last administered on 01/05/21at 11:30; Start 01/05/21 at 11:30; Stop 01/05/21 at 11:35; Status DC Fentanyl Citrate (Fentanyl 2ml Vial) 100 mcg 1X ONCE IV Last administered on 01/05/21at 11:30; Start 01/05/21 at 11:30; Stop 01/05/21 at 11:35; Status DC Iodixanol (Visipaque 320) 100 ml 1X ONCE IART Last administered on 01/05/21at 11:49; Start 01/05/21 at 11:30; Stop 01/05/21 at 11:35; Status DC Lidocaine HCl (Xylocaine-Mpf 1% 2ml Vial) 2 ml 1X ONCE INJ Last administered on 01/05/21at 11:30; Start 01/05/21 at 11:30; Stop 01/05/21 at 11:35; Status DC Sodium Chloride (Normal Saline Flush) 3 ml QSHIFT PRN IV AFTER MEDS AND BLOOD DRAWS; Start 01/05/21 at 12:15 Aspirin (Ecotrin) 81 mg DAILYWBKFT PO Last administered on 01/06/21at 08:22; Start 01/06/21 at 08:00 Nitroglycerin (Nitrostat) 0.4 mg PRN Q5MIN PRN SL CHEST PAIN; Start 01/05/21 at 12:15 Spironolactone (Aldactone) 25 mg DAILY PO Last administered on 01/06/21at 08:23; Start 01/06/21 at 09:00 Sacubitril/ Valsartan (Entresto 24 Mg-26 Mg) 1 tab BID PO Last administered on 01/06/21at 08:22; Start 01/06/21 at 09:00 Atorvastatin Calcium (Lipitor) 40 mg QHS PO ; Start 01/06/21 at 21:00 Active Scripts Active Amlodipine Besylate 5 Mg Tablet 5 Mg PO DAILY Atorvastatin Calcium 20 Mg Tablet 20 Mg PO QHS Carvedilol (Carvedilol) 3.125 Mg Tablet 3.125 Mg PO BIDWMEALS Reported Losartan Potassium 100 Mg Tablet 100 Mg PO DAILY Tresiba (Insulin Degludec) 100 Unit/1 Ml Vial 30 Unit SQ HS Percocet 10-325 Mg Tablet (Oxycodone/Acetaminophen) 1 Each Tablet 1 Tab PO QIDPRN PRN MDD 4 Tablet(s) 30 Days Benadryl (Diphenhydramine Hcl) 25 Mg Capsule 25 Mg PO Q6HRS Metformin Hcl 1,000 Mg Tablet 1,000 Mg PO BIDWMEALS Aspirin 81 Mg Tab.chew 1 Tab PO DAILY Clopidogrel (Clopidogrel Bisulfate) 75 Mg Tablet 75 Mg PO DAILY Vital Signs Vital Signs Date Time Temp Pulse Resp B/P (MAP) Pulse Ox O2 Delivery O2 Flow Rate FiO2 01/06/21 11:00 97.3 89 20 123/66 (85) 96 Room Air 97.3 01/05/21 14:36 2.0 Labs Laboratory Tests Test 01/04/21 22:35 01/05/21 02:05 01/05/21 02:14 01/05/21 05:30 White Blood Count 11.9 x10^3/uL (4.0-11.0) Red Blood Count 4.08 x10^6/uL (3.50-5.40) Hemoglobin 12.4 g/dL (12.0-15.5) Hematocrit 36.9 % (36.0-47.0) Mean Corpuscular Volume 90 fL (79-100) Mean Corpuscular Hemoglobin 30 pg (25-35) Mean Corpuscular Hemoglobin Concent 34 g/dL (31-37) Red Cell Distribution Width 12.6 % (11.5-14.5) Platelet Count 321 x10^3/uL (140-400) Neutrophils (%) (Auto) 39 % (31-73) Lymphocytes (%) (Auto) 44 % (24-48) Monocytes (%) (Auto) 10 % (0-9) Eosinophils (%) (Auto) 6 % (0-3) Basophils (%) (Auto) 1 % (0-3) Neutrophils # (Auto) 4.6 x10^3/uL (1.8-7.7) Lymphocytes # (Auto) 5.2 x10^3/uL (1.0-4.8) Monocytes # (Auto) 1.2 x10^3/uL (0.0-1.1) Eosinophils # (Auto) 0.7 x10^3/uL (0.0-0.7) Basophils # (Auto) 0.1 x10^3/uL (0.0-0.2) Prothrombin Time 13.5 SEC (11.7-14.0) Prothromb Time International Ratio 1.0 (0.8-1.1) Sodium Level 141 mmol/L (136-145) Potassium Level 4.5 mmol/L (3.5-5.1) Chloride Level 106 mmol/L (98-107) Carbon Dioxide Level 28 mmol/L (21-32) Anion Gap 7 (6-14) Blood Urea Nitrogen 26 mg/dL (7-20) Creatinine 1.1 mg/dL (0.6-1.0) Estimated GFR (Cockcroft-Gault) 48.3 BUN/Creatinine Ratio 24 (6-20) Glucose Level 92 mg/dL (70-99) Calcium Level 9.8 mg/dL (8.5-10.1) Magnesium Level 1.9 mg/dL (1.8-2.4) Total Bilirubin 1.5 mg/dL (0.2-1.0) Aspartate Amino Transf (AST/SGOT) 16 U/L (15-37) Alanine Aminotransferase (ALT/SGPT) 17 U/L (14-59) Alkaline Phosphatase 77 U/L (46-116) Troponin I Quantitative 0.021 ng/mL (0.000-0.055) 0.701 ng/mL (0.000-0.055) 1.318 ng/mL (0.000-0.055) FM-Lgq-Q-Type Natriuretic Peptide 121 pg/mL (0-449) Total Protein 7.7 g/dL (6.4-8.2) Albumin 4.3 g/dL (3.4-5.0) Albumin/Globulin Ratio 1.3 (1.0-1.7) Urine Collection Type Unknown Urine Color Yellow Urine Clarity Clear Urine pH 5.0 (<5.0-8.0) Urine Specific [place] 1.025 (1.000-1.030) Urine Protein Negative mg/dL (NEG-TRACE) Urine Glucose (UA) Negative mg/dL (NEG) Urine Ketones (Stick) Trace mg/dL (NEG) Urine Blood Negative (NEG) Urine Nitrite Negative (NEG) Urine Bilirubin Negative (NEG) Urine Urobilinogen Dipstick 0.2 mg/dL (0.2 mg/dL) Urine Leukocyte Esterase Negative (NEG) Urine RBC Occ /HPF (0-2) Urine WBC 1-4 /HPF (0-4) Urine Squamous Epithelial Cells Mod /LPF Urine Bacteria Few /HPF (0-FEW) Urine Hyaline Casts Few /HPF Urine Mucus Mod /LPF Triglycerides Level 102 mg/dL (0-150) Cholesterol Level 139 mg/dL (0-200) LDL Cholesterol, Calculated 65 mg/dL (0-100) VLDL Cholesterol, Calculated 20 mg/dL (0-40) Non-HDL Cholesterol Calculated 85 mg/dL (0-129) HDL Cholesterol 54 mg/dL (40-60) Cholesterol/HDL Ratio 2.6 Test 01/05/21 07:52 01/05/21 20:44 01/06/21 05:50 01/06/21 07:41 Glucose (Fingerstick) 135 mg/dL (70-99) 162 mg/dL (70-99) 152 mg/dL (70-99) White Blood Count 14.3 x10^3/uL (4.0-11.0) Red Blood Count 3.83 x10^6/uL (3.50-5.40) Hemoglobin 11.7 g/dL (12.0-15.5) Hematocrit 34.6 % (36.0-47.0) Mean Corpuscular Volume 90 fL (79-100) Mean Corpuscular Hemoglobin 31 pg (25-35) Mean Corpuscular Hemoglobin Concent 34 g/dL (31-37) Red Cell Distribution Width 13.0 % (11.5-14.5) Platelet Count 254 x10^3/uL (140-400) Neutrophils (%) (Auto) 80 % (31-73) Lymphocytes (%) (Auto) 12 % (24-48) Monocytes (%) (Auto) 9 % (0-9) Eosinophils (%) (Auto) 0 % (0-3) Basophils (%) (Auto) 0 % (0-3) Neutrophils # (Auto) 11.4 x10^3/uL (1.8-7.7) Lymphocytes # (Auto) 1.6 x10^3/uL (1.0-4.8) Monocytes # (Auto) 1.3 x10^3/uL (0.0-1.1) Eosinophils # (Auto) 0.0 x10^3/uL (0.0-0.7) Basophils # (Auto) 0.0 x10^3/uL (0.0-0.2) Sodium Level 141 mmol/L (136-145) Potassium Level 4.6 mmol/L (3.5-5.1) Chloride Level 107 mmol/L (98-107) Carbon Dioxide Level 25 mmol/L (21-32) Anion Gap 9 (6-14) Blood Urea Nitrogen 30 mg/dL (7-20) Creatinine 1.2 mg/dL (0.6-1.0) Estimated GFR (Cockcroft-Gault) 43.7 Glucose Level 180 mg/dL (70-99) Calcium Level 8.9 mg/dL (8.5-10.1) Test 01/06/21 12:09 Glucose (Fingerstick) 188 mg/dL (70-99) Laboratory Tests Test 01/05/21 20:44 01/06/21 05:50 01/06/21 07:41 01/06/21 12:09 Glucose (Fingerstick) 162 mg/dL (70-99) 152 mg/dL (70-99) 188 mg/dL (70-99) White Blood Count 14.3 x10^3/uL (4.0-11.0) Red Blood Count 3.83 x10^6/uL (3.50-5.40) Hemoglobin 11.7 g/dL (12.0-15.5) Hematocrit 34.6 % (36.0-47.0) Mean Corpuscular Volume 90 fL (79-100) Mean Corpuscular Hemoglobin 31 pg (25-35) Mean Corpuscular Hemoglobin Concent 34 g/dL (31-37) Red Cell Distribution Width 13.0 % (11.5-14.5) Platelet Count 254 x10^3/uL (140-400) Neutrophils (%) (Auto) 80 % (31-73) Lymphocytes (%) (Auto) 12 % (24-48) Monocytes (%) (Auto) 9 % (0-9) Eosinophils (%) (Auto) 0 % (0-3) Basophils (%) (Auto) 0 % (0-3) Neutrophils # (Auto) 11.4 x10^3/uL (1.8-7.7) Lymphocytes # (Auto) 1.6 x10^3/uL (1.0-4.8) Monocytes # (Auto) 1.3 x10^3/uL (0.0-1.1) Eosinophils # (Auto) 0.0 x10^3/uL (0.0-0.7) Basophils # (Auto) 0.0 x10^3/uL (0.0-0.2) Sodium Level 141 mmol/L (136-145) Potassium Level 4.6 mmol/L (3.5-5.1) Chloride Level 107 mmol/L (98-107) Carbon Dioxide Level 25 mmol/L (21-32) Anion Gap 9 (6-14) Blood Urea Nitrogen 30 mg/dL (7-20) Creatinine 1.2 mg/dL (0.6-1.0) Estimated GFR (Cockcroft-Gault) 43.7 Glucose Level 180 mg/dL (70-99) Calcium Level 8.9 mg/dL (8.5-10.1) Allergies Allergies Coded Allergies Type Severity Reaction Last Updated Verified Iodinated Contrast Media Allergy Severe 02/18/20 Yes Tetracyclines Allergy Severe nausea and vomiting 02/17/20 Yes Disposition/Orders: D/C to Home Justicifation of Admission Dx: Justifications for Admission: Justification of Admission Dx: N/A KANWAL LEMOS MD Jan 06, 2021 14:47
[2021-01-06] MEDS ORDERED: SACU1TAB PO (14:50)
[2021-01-06] MEDS ORDERED: ATOR40TA59 PO (14:50)
[2021-01-06] MEDS ORDERED: SPIR25TA PO (14:50)
[2021-01-06] MEDS ORDERED: NITR0.4T24 SL (14:50)
--- NOTE | 2021-01-06 14:52 | SNU/HH DC ---
DISCHARGE WITH HOME HEALTH DISCHARGE INFORMATION: Discharge Date: Jan 06, 2021 Condition on Discharge: Guarded CODE STATUS: Code Status: Full HOME HEALTH: Face to Face: I certify this patient is under my care and that I, or a nurse practitioner or physician's dental assistant working with me, had a face to face encounter that meets the physician face to face encounter requirements with this patient on []. Medical Complications: CHF Residential For: Admin/Educate Injections, Assess Cardiopulm Status, Assess & Educate Safety, Assess/Skilled Observatio, Medication Management RN For Eval/Treatment: Yes Physical Therapy For: Evalulation/Treatment Occupational Therapy For: Evaluation/Treatment Speech Language Pathology For: Evaluation/Treatment Home Health Aide For: Self-care DEPUTY HEAD For: Community Resources Pt Meets Homebound Status: Fatigue w/ amb., Limited distance walking POST DISCHARGE ORDERS: Activity Instructions for Disc: Activity as tolerated Weight Bearing Status after Di: As tolerated DIET AFTER DISCHARGE: ADA CHECKS AFTER DISCHARGE: Checks after discharge: Check blood press - daily FOLLOW-UP: PCP to follow Home Health: SEE CARDIOLOGY 3-4 WEEKS, PCP IN ONE WEEK TREATMENT/EQUIPMENT ORDERS: Adaptive Equipment Issued: None, Front wheeled walker, Grab bars CERTIFICATION STATEMENT: Certification Statement: Certification Statement: Based on the above finding, I certify that this patient is confined to the home and needs intermittent senior care care, physical therapy and/or speech therapy, or continues to need occupational therapy.~ This patient is under my care, and I have initiated the establishment of the plan of care.~ This patient will be followed by myself or a community physician who will periodically review the plan of care. Home Meds Active Scripts Spironolactone (ALDACTONE) 25 Mg Tablet, 25 MG PO DAILY for HEART for 30 Days, #30 TAB Prov:KANWAL LEMOS MD 01/06/21 Sacubitril/Valsartan (Entresto 24 mg-26 mg Tablet) 1 Each Tablet, 1 TAB PO BID for HEART for 30 Days, #60 TAB Prov:KANWAL LEMOS MD 01/06/21 Nitroglycerin (NITROSTAT) 0.4 Mg Tab.subl, 0.4 MG SL PRN Q5MIN PRN for CHEST PAIN for 30 Days, #30 TAB Prov:KANWAL LEMOS MD 01/06/21 Atorvastatin Calcium (ATORVASTATIN CALCIUM) 40 Mg Tablet, 40 MG PO QHS for CHOLESTEROL for 30 Days, #30 TAB Prov:KANWAL LEMOS MD 01/06/21 Amlodipine Besylate (AMLODIPINE BESYLATE) 5 Mg Tablet, 5 MG PO DAILY for HTN, #30 TAB 6 Refills Prov:PAPI FLORES MD 02/19/20 Carvedilol (CARVEDILOL ) 3.125 Mg Tablet, 3.125 MG PO BIDWMEALS for Afib, #60 TAB 6 Refills Prov:PAPI FLORES MD 02/19/20 Reported Medications Insulin Degludec (Tresiba) 100 Unit/1 Ml Vial, 30 UNIT SQ HS for blood sugar, EACH 02/18/20 Oxycodone/Apap 10-325 (PERCOCET 10-325 MG TABLET ) 1 Each Tablet, 1 TAB PO QIDPRN PRN for PAIN MDD 4 Tablet(s) for 30 Days, #120 TAB 0 Refills 02/18/20 Metformin Hcl (METFORMIN HCL) 1,000 Mg Tablet, 1000 MG PO BIDWMEALS for blood sugar control, TAB 02/18/20 Aspirin (ASPIRIN) 81 Mg Tab.chew, 1 TAB PO DAILY for heart, #30 TAB 3 Refills 02/18/20 Clopidogrel Bisulfate (CLOPIDOGREL) 75 Mg Tablet, 75 MG PO DAILY for TO PREVENT BLOOD CLOTS, #30 TAB 0 Refills 02/18/20 Discontinued Reported Medications Losartan Potassium (LOSARTAN POTASSIUM) 100 Mg Tablet, 100 MG PO DAILY for HYPERTENSION, TAB 02/18/20 Diphenhydramine Hcl (BENADRYL) 25 Mg Capsule, 25 MG PO Q6HRS for allergies, CAP 02/18/20 Discontinued Scripts Atorvastatin Calcium (ATORVASTATIN CALCIUM) 20 Mg Tablet, 20 MG PO QHS for CAD, #30 TAB 6 Refills Prov:PAPI FLORES MD 02/19/20 KANWAL LEMOS MD Jan 06, 2021 14:52
--- NOTE | 2021-01-06 16:09 | NUR ---
Discharge Note: [facility] Discharge instructions and discharge home medications reviewed with Patient and a copy given. All questions have been answered and understanding verbalized. The following instructions and handouts were given: Diet, post cath care, medications. Discontinued lines and drains: IV removed, no lines present. Patient discharged to Home. Left by wheelchair to her husbands private vehicle.
[2021-01-06] MEDS ORDERED: ATORVASTATIN CALCIUM 40 MG TABLET. PO SCH (21:00)
== END 2021-01-06 16:00 | disposition home or self-care (01) ==
LOC: ER 22:18 → ED HOLD 01-05 00:06 → 6 SOUTH 01-05 16:13
PROVIDERS: ADMIT Internal Medicine; ATTEND Internal Medicine
DX: I25.119 Atherosclerotic heart disease of native coronary artery with unspecified angina pectoris (principal); I21.4 Non-ST elevation (NSTEMI) myocardial infarction; E78.00 Pure hypercholesterolemia, unspecified; I25.2 Old myocardial infarction; I11.0 Hypertensive heart disease with heart failure; I50.43 Acute on chronic combined systolic (congestive) and diastolic (congestive) heart failure; E11.9 Type 2 diabetes mellitus without complications; R11.2 Nausea with vomiting, unspecified; R77.8 Other specified abnormalities of plasma proteins; E78.5 Hyperlipidemia, unspecified; M19.90 Unspecified osteoarthritis, unspecified site; Z82.49 Family history of ischemic heart disease and other diseases of the circulatory system; Z79.82 Long term (current) use of aspirin; Z79.4 Long term (current) use of insulin; Z87.442 Personal history of urinary calculi; Z87.440 Personal history of urinary (tract) infections; Z90.710 Acquired absence of both cervix and uterus; Z95.5 Presence of coronary angioplasty implant and graft; Z87.891 Personal history of nicotine dependence; Z98.890 Other specified postprocedural states
CPT/HCPCS: 36415; 71046; 80048; 80053; 80061; 81001; 82962; 83735; 83880; 84484; 85025; 85610; 93005; 93306; 93458; 96365; 96366; 96368; 96375; 96376; 99152; 99153; 99285; C1769; C1894; G0378; J1170; J1200; J1644; J1815; J2250; J2270; J2405; J2930; J3010; J3490; J7030; Q0163; Q9967; G0379